=== PATIENT | female | born 1960 | race Caucasian/White ===

== ENCOUNTER 2016-09-24 17:54 | Inpatient (IN) | payer BC ==
[~2016-09-24] VITALS: Ht 160 cm; Wt 95.6 kg
[~2016-09-24 17:54] MED LIST: AMBI5TAB PO; CEPH500C3 PO; CYMB30CA PO; FURO1TAB93 PO; HYDR-3533 PO; IRBE150T49 PO; MULT1TAB46 PO; PREG75 PO; PROT40TA PO; PROV200T11 PO; SPIR25TA PO; ST JTAB PO; VITA100020 IM; VITA100020 SL
[2016-09-24 17:59] VITALS: BP 129/67; PULSE 76; RESP 15; TEMP 98.2; O2SAT 98
[2016-09-24] MEDS ORDERED: IMMUNE GLOBULIN INJ 40 GM in SYRINGE/BAG 1 EA IV SCH ×2 (19:00→21:45)
[2016-09-24] MEDS ORDERED: ACETAMINOPHEN 500 MG CPLT PO ONE (19:00)
--- NOTE | 2016-09-24 19:03 | PD ---
HPI Chief Complaint: General Weakness Time Seen by Provider: 18:35 Travel History International Travel<30 days: No Contact w/Intl Traveler<30days: No Traveled to known affect area: No History of Present Illness HPI 56yo F with PMH of CHF, narcolepsy, myasthenia gravis presents to the ED with c/ o generalized weakness, fatigue, double vision and drooping of left eyelid that is worst for 2-3 days. Pt is well known to Dr. Marcelo and was instructed to come to the ED. Denies any fever, chest pain, sob, n/v, abdominal pain, focal weakness or numbness. PFSH Past Medical History Anemia: Yes Arthritis: Yes Asthma: Yes Autoimmune Disease: No Blood Disorders: No Anxiety: No Depression: Yes Heart Rhythm Problems: No Cancer: No Cardiac Catheterization: Yes (AGE 50) Cardiovascular Problems: Yes High Cholesterol: No Chemotherapy: No Chest Pain: No Congestive Heart Failure: Yes COPD: No Cerebrovascular Accident: Yes Diabetes: No Diminished Hearing: No Endocrine: No Fibromyalgia: Yes Gastrointestinal Disorders: No GERD: Yes Glaucoma: No Genitourinary: No Headaches: Yes (OCCASIONALLY) Hepatitis: No Hiatal Hernia: No Herniated Disk: Yes Hypertension: Yes Immune Disorder: No Kidney Stones: Yes Musculoskeletal: No Neurologic: No Psychiatric: Yes Reproductive: No Respiratory: Yes Integumentary: No Immunizations Current: Yes Migraines: Yes (RARELY) Myocardial Infarction: No Radiation Therapy: No Renal Failure: No Seizures: No Shingles: Yes Sickle Cell Disease: No Sleep Apnea: Yes Thyroid Disease: No Ulcer: No Menopausal: Yes : 3 Para: 2 Miscarriage: 1 Tubal Ligation: Yes Past Surgical History Abdominal Surgery: Yes (APPENDECTOMY, GASTRIC BYPASS) AICD: No Appendectomy: Yes Arteriovenous Shunt: No Cardiac Surgery: Yes (HEART CATHERIZATION) Section: Yes (X 2) Cholecystectomy: No Ear Surgery: No Endocrine Surgery: No Eye Surgery: No Genitourinary Surgery: No Gynecologic Surgery: Yes ( X2) Insulin Pump: No Joint Replacement: No Oral Surgery: No Pacemaker: No Thoracic Surgery: No Other Surgery: Yes (LEFT TOENAIL REMOVED, DEVIATED SEPTUM, HEMORRHOIDECTOMY) Social History Alcohol Use: No Tobacco Use: No (QUIT AGE 50) Substance Use: No Allergies-Medications (Allergen,Severity, Reaction): Coded Allergies: Percocet (Unverified Allergy, Severe, 09/24/16) Singulair (Verified Allergy, Severe, Shortness of Breath, 09/24/16) Adderall (Verified Allergy, Unknown, 09/24/16) "PUTS ME TO SLEEP" Uncoded Allergies: PERCOCET. (Allergy, Severe, 07/21/13) Reported Meds & Prescriptions Reported Meds & Active Scripts Active Reported Ambien (Zolpidem Tartrate) 10 Mg Tab 10 Mg PO HS PRN Spironolactone 25 Mg Tab 25 Mg PO DAILY Multi For Her (Multiple Vitamins W/ Minerals) 1 Cap Cap Lyrica (Pregabalin) 300 Mg Cap 300 Mg PO BID Provigil (Modafinil) 200 Mg Tab 200 Mg PO DAILY Vitamin B-Complex 100 Inj (B-Complex Vitamins Inj) 1 Inj Inj 1,000 Mcg IM MONTHLY Avapro (Irbesartan) 150 Mg Tab 150 Mg PO DAILY Furosemide 40 Mg Tab 40 Mg PO BID Duloxetine DR (Duloxetine HCl) 60 Mg Capdr 60 Mg PO DAILY Pyridostigmine (Pyridostigmine [place]) 60 Mg Tab 60 Mg PO BID Review of Systems Except as stated in HPI: all other systems reviewed are Neg Physical Exam Narrative GENERAL: 56yo F not in distress. SKIN: Warm and dry. HEAD: Atraumatic. Normocephalic. EYES: Pupils equal and round at 4mm bilaterally. +Left eye ptosis. ENT: No nasal bleeding or discharge. Mucous membranes pink and moist. NECK: Trachea midline. No JVD. CARDIOVASCULAR: Regular rate and rhythm. No murmur appreciated. RESPIRATORY: No accessory muscle use. Clear to auscultation. Breath sounds equal bilaterally. GASTROINTESTINAL: Abdomen soft, non-tender, nondistended. No rebound tenderness or guarding. MUSCULOSKELETAL: No obvious deformities. No clubbing. No cyanosis. No edema. NEUROLOGICAL: Awake and alert. +Left eye ptosis. +Decreased sensation on left face. Motor grossly within normal limits. Normal speech. PSYCHIATRIC: Appropriate mood and affect; insight and judgment normal. Data Data Last Documented VS Vital Signs Date Time Temp Pulse Resp B/P Pulse Ox O2 Delivery O2 Flow Rate FiO2 09/24/16 21:06 18 09/24/16 17:59 98.2 76 129/67 98 Orders Complete Blood Count With Diff (09/24/16 18:53) Basic Metabolic Panel (Bmp) (09/24/16 18:53) Immune Globulin Inj (Privigen Inj) (09/24/16 19:00) Acetaminophen (Tylenol) (09/24/16 19:00) Electrocardiogram (09/24/16 ) Magnesium (Mg) (09/24/16 19:30) Admit Order (Ed Use Only) (09/24/16 21:11) Consult Neurology (09/24/16 ) Labs Laboratory Tests Test 09/24/16 19:30 White Blood Count 8.7 TH/MM3 Red Blood Count 4.28 MIL/MM3 Hemoglobin 12.7 GM/DL Hematocrit 37.0 % Mean Corpuscular Volume 86.4 FL Mean Corpuscular Hemoglobin 29.6 PG Mean Corpuscular Hemoglobin 34.3 % Concent Red Cell Distribution Width 14.3 % Platelet Count 234 TH/MM3 Mean Platelet Volume 9.5 FL Neutrophils (%) (Auto) 59.5 % Lymphocytes (%) (Auto) 31.7 % Monocytes (%) (Auto) 6.0 % Eosinophils (%) (Auto) 2.0 % Basophils (%) (Auto) 0.8 % Neutrophils # (Auto) 5.2 TH/MM3 Lymphocytes # (Auto) 2.8 TH/MM3 Monocytes # (Auto) 0.5 TH/MM3 Eosinophils # (Auto) 0.2 TH/MM3 Basophils # (Auto) 0.1 TH/MM3 CBC Comment DIFF FINAL Differential Comment Sodium Level 142 MEQ/L Potassium Level 3.7 MEQ/L Chloride Level 107 MEQ/L Carbon Dioxide Level 27.0 MEQ/L Anion Gap 8 MEQ/L Blood Urea Nitrogen 21 MG/DL Creatinine 0.87 MG/DL Estimat Glomerular Filtration 68 ML/MIN Rate Random Glucose 93 MG/DL Calcium Level 8.4 MG/DL Magnesium Level 2.2 MG/DL [facility] Medical Decision Making Medical Screen Exam Complete: Yes Emergency Medical Condition: Yes Interpretation(s) EKG: Sinus bradycardia at 49bpm. Normal axis. No ST segment elevation or depression. Differential Diagnosis Myasthenia gravis exacerbation vs. electrolyte abnormalities Narrative Course 56yo F with history of myasthenia gravis here with generalized fatigue, double vision and worsening left ptosis for 2-3 days. I discussed with Dr. Marcelo and he wants to start her on 400mg/kg/day IVIG and admit her to medicine. States to give acetaminophen 30 min prior to IVIG with anticipated headache. I ordered first dose of IVIG and given in the ED. Neurology consult placed. Labs reviewed, no leukocytosis. BUN mildly elevated at 21. Normal magnesium. Discussed with Dr. Noriega and accepted to her service. Diagnosis Primary Impression: Myasthenia gravis in crisis Admitting Information Admitting Physician Requests: Admit Monica Swain DO Sep 24, 2016 19:03
[2016-09-24] MEDS ORDERED: PYRI60 PO (19:04)
[2016-09-24] MEDS ORDERED: MULTCAP (20:23)
[2016-09-24] MEDS ORDERED: SPIR25TA PO (20:23)
[2016-09-24] MEDS ORDERED: PREG300 PO (20:23)
[2016-09-24] MEDS ORDERED: DULO1CAP3 PO (20:23)
[2016-09-24] MEDS ORDERED: B-COINJ IM (20:23)
[2016-09-24] MEDS ORDERED: PROV200T11 PO (20:23)
[2016-09-24] MEDS ORDERED: IRBE150T49 PO (20:23)
[2016-09-24] MEDS ORDERED: FURO40TA PO (20:23)
[2016-09-24] MEDS ORDERED: AMBI10TA PO (20:23)
[2016-09-24 20:26] LABS: AUTOMATED NEUTROPHIL # 5.2 TH/MM3 (1.8-7.7); BASOPHIL # 0.1 TH/MM3 (0-0.2); BASOPHIL % 0.8 % (0.0-2.0); EOSINOPHIL # 0.2 TH/MM3 (0-0.4); HEMO FLAGS DIFF FINAL; LYMPH % 31.7 % (9.0-44.0); LYMPHOCYTE # 2.8 TH/MM3 (1.0-4.8); MEAN CELL VOLUME 86.4 FL (80.0-100.0); MEAN CORPUSCULAR HEMOGLOBIN 29.6 PG (27.0-34.0); MEAN CORPUSCULAR HGB CONC 34.3 % (32.0-36.0); NEUT % 59.5 % (16.0-70.0); PLATELET COUNT 234 TH/MM3 (150-450); RED BLOOD COUNT 4.28 MIL/MM3 (4.00-5.30); RED CELL DISTRIBUTION WIDTH 14.3 % (11.6-17.2); WHITE BLOOD COUNT 8.7 TH/MM3 (4.0-11.0)
[2016-09-24 20:56] LABS: MAGNESIUM 2.2 MG/DL (1.5-2.5); POTASSIUM 3.7 MEQ/L (3.5-5.1)
[2016-09-24 21:58] VITALS: BP 108/68; PULSE 49; RESP 18; O2SAT 97
[2016-09-24 22:45] VITALS: BP 98/57; PULSE 46; RESP 18; O2SAT 100
[2016-09-24] MEDS ORDERED: NALOXONE HCL 0.4 MG/ML AMP IV PRN (23:00)
[2016-09-24] MEDS ORDERED: SODIUM CHLORIDE 0.9% FLUSH 10 ML FLUSH IV FLUSH PRN (23:00)
[2016-09-24 23:51] VITALS: BP 112/62; PULSE 65; RESP 18; O2SAT 98
[2016-09-25 03:29] VITALS: BP 98/48; PULSE 63; RESP 18; O2SAT 100
[2016-09-25 05:18] VITALS: BP 118/60; PULSE 63; RESP 18; O2SAT 100
[2016-09-25 07:24] LABS: AUTOMATED NEUTROPHIL # 3.1 TH/MM3 (1.8-7.7); BASOPHIL % 0.7 % (0.0-2.0); EOSINOPHIL # 0.1 TH/MM3 (0-0.4); EOSINOPHIL % 2.1 % (0.0-4.0); HEMATOCRIT 36.8 % (35.0-46.0); HEMO FLAGS DIFF FINAL; LYMPH % 26.2 % (9.0-44.0); LYMPHOCYTE # 1.3 TH/MM3 (1.0-4.8); MEAN CELL VOLUME 86.5 FL (80.0-100.0); MEAN CORPUSCULAR HEMOGLOBIN 28.8 PG (27.0-34.0); MEAN CORPUSCULAR HGB CONC 33.3 % (32.0-36.0); MONO % 7.4 % (0.0-8.0); NEUT % 63.6 % (16.0-70.0); PLATELET COUNT 195 TH/MM3 (150-450); RED BLOOD COUNT 4.25 MIL/MM3 (4.00-5.30); RED CELL DISTRIBUTION WIDTH 14.2 % (11.6-17.2); WHITE BLOOD COUNT 4.9 TH/MM3 (4.0-11.0)
[2016-09-25 07:57] LABS: BICARBONATE 27.4 MEQ/L (21.0-32.0); POTASSIUM 3.3 MEQ/L (3.5-5.1)
--- NOTE | 2016-09-25 08:57 | PD.CONS ---
History of Present Illness Service Neurology Consult Requested By er Reason for Consult weakness Primary Care Physician Fer Moe MD History of Present Illness 56-year-old female with hx of diplopia, ptosis, severe fatigue and sleepiness. working dx is sero-negative myasthenia gravis. has responded to ice-pack to forehead to help ptosis and to mestinon. has felt weak, sleepy and more ptosis. she is admitted for ivig tx. she understands the s/b of this medication including renal failure, mir, rash, mir, etc.. steroids have provided limited relief. tolerated 1st dose last night. Review of Systems as per med hpi Past Family Social History Past Medical History Congestive heart failure Fibromyalgia Depression benjamin/narcolepsy Past Surgical History Appendectomy Gastric bypass Right knee surgery Laminectomy Cardiac catheterization Tubal ligation Allergies: Coded Allergies: Egg Allergy (Verified Allergy, Severe, SOB, 09/25/14) Percocet (Unverified Allergy, Severe, 09/25/14) Singulair (Verified Allergy, Severe, Shortness of Breath, 09/25/14) Uncoded Allergies: PERCOCET. (Allergy, Severe, 07/21/13) Family History Significant for heart disease and stroke Social History works as an chief security officer. She denies any alcohol or illicit drugs Review of Systems All other ROS: ROS reviewed as documented in chart Past Family Social History Allergies: Coded Allergies: Percocet (Unverified Allergy, Severe, 09/24/16) Singulair (Verified Allergy, Severe, Shortness of Breath, 09/24/16) Adderall (Verified Allergy, Unknown, 09/24/16) "PUTS ME TO SLEEP" Uncoded Allergies: PERCOCET. (Allergy, Severe, 07/21/13) Active Ordered Medications Current Medications Medications (Trade) Dose Ordered Sig/Padmaja Route Start Time Stop Time Status Last Admin (Privigen Inj/ Syringe/Bag) 400 ml @ 50 mls/hr ONCE IV 09/24/16 21:45 (NS Flush) 2 ml UNSCH PRN IV FLUSH 09/24/16 23:00 (NS Flush) 2 ml BID IV FLUSH 09/25/16 09:00 (Narcan Inj) 0.4 mg UNSCH PRN IV 09/24/16 23:00 (Nelsonmbalta Dr) 60 mg DAILY PO 09/25/16 09:00 (Lasix) 40 mg BID@09,18 PO 09/25/16 09:00 (Provigil) 200 mg DAILY PO 09/25/16 09:00 (Mestinon) 60 mg BID PO 09/25/16 09:00 (Aldactone) 25 mg DAILY PO 09/25/16 09:00 (Vitamin B12 Inj) 1,000 mcg Q30D IM 09/25/16 09:00 (Cozaar) 50 mg DAILY PO 09/25/16 09:00 (Lyrica) 300 mg BID PO 09/25/16 09:00 Exam I&O / VS Vital Signs Date Time Temp Pulse Resp B/P Pulse Ox O2 Delivery O2 Flow Rate FiO2 09/25/16 05:18 63 18 118/60 100 Room Air 09/25/16 03:29 63 18 98/48 100 Room Air 09/25/16 02:49 100 09/24/16 23:51 65 18 112/62 98 Room Air 09/24/16 22:45 46 18 98/57 100 Room Air 09/24/16 21:58 49 18 108/68 97 Room Air 09/24/16 21:45 97 Room Air 09/24/16 21:06 18 09/24/16 17:59 98.2 76 15 129/67 98 General: Alert and Oriented, No acute distress Eye: PERRL Respiratory: Lungs CTA Cardiology: Normal rate Musculoskeletal: ROM Neurologic: Alert, Oriented, Normal sensory, Gag reflex normal, Normal DTR's Psychiatric: Cooperative, Appropriate mood & affect, Normal judgement Exam Comments ox 3, pleasant, follows, left ptosis>rt, mild reduced saccadic velocities; mild proximal weakness with fatigue, msr sym Review/Management Diagnosis/Plan: (1) Myasthenia exacerbation Plan: seronegative mg rec 5 days of ivig please transfer her to 5th floor [facility] with tele p.t. watch cbc, bmp follow exam anticipate d/c early next week, mon/tues (2) Narcolepsy and cataplexy (3) Congestive heart failure (4) BENJAMIN on CPAP Problem Qualifiers (1) Congestive heart failure: Edis Osman MD Sep 25, 2016 08:57
[2016-09-25] MEDS: diphenhydrAMINE HCL 25 MG CAP PO SCH (09:00)
[2016-09-25] MEDS ORDERED: CYANOCOBALAMIN 1000 MCG/ML VIAL IM SCH (09:00)
[2016-09-25 09:15] VITALS: BP 108/55; PULSE 62; RESP 16; O2SAT 97
[2016-09-25] MEDS: LOSARTAN 50 MG TAB PO SCH (09:16)
[2016-09-25] MEDS: DULoxetine HCl DR 60 MG CAP PO SCH (09:17)
[2016-09-25] MEDS: SPIRONOLACTONE 25 MG TAB PO SCH (09:17)
[2016-09-25] MEDS: PYRIDOSTIGMINE BROMIDE 60 MG TAB PO SCH ×2 (09:17→21:33)
[2016-09-25] MEDS: FUROSEMIDE 40 MG TAB PO SCH ×2 (09:21→18:38)
[2016-09-25] MEDS: SODIUM CHLORIDE 0.9% FLUSH 10 ML FLUSH IV FLUSH SCH ×2 (09:22→21:00)
[2016-09-25] MEDS: MODAFINIL 200 MG TAB PO SCH (09:52)
[2016-09-25] MEDS: PREGABALIN 100 MG CAP PO SCH ×2 (09:52→12:11)
[2016-09-25] MEDS ORDERED: EPINEPHrine HCL (1:1000) 1 MG/ML VIAL OTHER PRN (10:00)
[2016-09-25] MEDS ORDERED: diphenhydrAMINE HCL 50 MG/ML VIAL IV PUSH PRN (10:00)
[2016-09-25] MEDS: ACETAMINOPHEN 325 MG TAB PO SCH (12:10)
[2016-09-25] MEDS: SODIUM CHLORID 0.9% 500 ML INJ 500 ML IV SCH (12:11)
[2016-09-25 12:15] VITALS: BP 111/59; PULSE 51; RESP 16; O2SAT 97
[2016-09-25] MEDS: DEXTROSE 5% IN WATE 500 ML INJ 500 ML OTHER SCH (13:16)
[2016-09-25] MEDS: IMMUNE GLOBULIN INJ 35 GM in SYRINGE/BAG 1 EA IV SCH (13:18)
[2016-09-25] MEDS: HEPARIN SODIUM - SQ 10,000 UNITS/ML VIAL SQ SCH ×2 (14:37→21:33)
[2016-09-25 16:40] VITALS: BP 113/69; PULSE 54; RESP 16; TEMP 97.1; O2SAT 99
--- NOTE | 2016-09-25 18:14 | HHI.HP ---
[facility] Fer Moe MD Admission Diagnosis Mysthenia gravis exacerbation Diagnoses: Travel History International Travel<30 Days: No Contact w/Intl Traveler <30 Da: No Traveled to Known Affected Are: No History of Present Illness This is a very pleasant 56-year-old female with past medical history of antibody negative myasthenia gravis followed by Dr. Joe meehan who presents with a 2 month history of fatigue, left eye ptosis and double vision along with intermittent episodes of transient sleeping/narcolepsy. She also feels that her band nailer strength is diminished. The symptoms started 2 months ago after she had influenza. They have not improved with steroids. They have not improved with pyridostigmine. Symptoms are moderate, progressive, no alleviating factors. However eyes placed to her left eyelid does temporarily relieve the ptosis for 20 minutes or so. Patient tells me her dose of pyridostigmine is limited due to her cardiomyopathy. After discussion Dr. Osman recommended she be treated with IVIG, the patient now is admitted for IVIG. Review of Systems Constitutional: COMPLAINS OF: Fatigue, DENIES: Chills Eyes: COMPLAINS OF: Diplopia Ears, nose, mouth, throat: DENIES: Vertigo Respiratory: DENIES: Cough, Shortness of breath Cardiovascular: DENIES: Chest pain, Palpitations Gastrointestinal: DENIES: Abdominal pain, Nausea Genitourinary: DENIES: Dysuria Musculoskeletal: DENIES: Back pain, Neck pain Hematologic/lymphatic: DENIES: Lymphadenopathy Neurologic: DENIES: Abnormal gait, Headache Psychiatric: DENIES: Anxiety, Confusion Past Family Social History Past Medical History Idiopathic cardiomyopathy followed by Dr. Zavala Pulmonary arterial hypertension followed by Dr. Zavala Cor pulmonale Fibromyalgia Myasthenia gravis Questionable history of stroke versus previous myasthenia gravis exacerbation Reported Medications Allergies Coded Allergies Type Severity Reaction Last Updated Verified Percocet Allergy Severe 09/24/16 No Singulair Allergy Severe Shortness of Breath 09/24/16 Yes Adderall Allergy Unknown 09/24/16 Yes Uncoded Allergies Type Severity Reaction Last Updated Verified PERCOCET. Allergy Severe 07/21/13 Active Scripts Medications Dose Route/Sig Days Date Category Ambien (Zolpidem Tartrate) 10 Mg Tab 10 Mg PO HS PRN 09/24/16 Reported Spironolactone 25 Mg Tab 25 Mg PO DAILY 09/24/16 Reported Multi For Her (Multiple Vitamins W/ Minerals) 1 Cap Cap 09/24/16 Reported Lyrica (Pregabalin) 300 Mg Cap 300 Mg PO BID 09/24/16 Reported Provigil (Modafinil) 200 Mg Tab 200 Mg PO DAILY 09/24/16 Reported Vitamin B-Complex 100 Inj (B-Complex Vitamins Inj) 1 Inj Inj 1,000 Mcg IM MONTHLY 09/24/16 Reported Avapro (Irbesartan) 150 Mg Tab 150 Mg PO DAILY 09/24/16 Reported Furosemide 40 Mg Tab 40 Mg PO BID 09/24/[address] (Duloxetine HCl) 60 Mg Capdr 60 Mg PO DAILY 09/24/16 Reported Pyridostigmine (Pyridostigmine [place]) 60 Mg Tab 60 Mg PO BID 09/24/16 Reported Allergies: Coded Allergies: Percocet (Unverified Allergy, Severe, 09/24/16) Singulair (Verified Allergy, Severe, Shortness of Breath, 09/24/16) Adderall (Verified Allergy, Unknown, 09/24/16) "PUTS ME TO SLEEP" Uncoded Allergies: PERCOCET. (Allergy, Severe, 07/21/13) Family History Positive for lupus and the sister. Social History She is a past smoker now quit. 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 She does not use heavy alcohol. No drug abuse. Physical Exam Vital Signs Vital Signs Date Time Temp Pulse Resp B/P Pulse Ox O2 Delivery O2 Flow Rate FiO2 09/25/16 16:40 97.1 54 16 113/69 99 09/25/16 12:15 51 16 111/59 97 Room Air 09/25/16 09:15 62 16 108/55 97 Room Air 09/25/16 05:18 63 18 118/60 100 Room Air 09/25/16 03:29 63 18 98/48 100 Room Air 09/25/16 02:49 100 09/24/16 23:51 65 18 112/62 98 Room Air 09/24/16 22:45 46 18 98/57 100 Room Air 09/24/16 21:58 49 18 108/68 97 Room Air 09/24/16 21:45 97 Room Air 09/24/16 21:06 18 Physical Exam GENERAL: This is a well-nourished, well-developed patient, in no apparent distress. SKIN: No rashes, ecchymoses or lesions. Cool and dry. HEAD: Atraumatic. Normocephalic. No temporal or scalp tenderness. EYES: Pupils equal round and reactive. Extraocular motions intact. No scleral icterus. No injection or drainage. ENT: Nose without bleeding, purulent drainage or septal hematoma. Throat without erythema, tonsillar hypertrophy or exudate. Uvula midline. Airway patent. NECK: Trachea midline. No JVD or lymphadenopathy. Supple, nontender, no meningeal signs. CARDIOVASCULAR: Regular rate and rhythm without murmurs, gallops, or rubs. RESPIRATORY: Clear to auscultation. Breath sounds equal bilaterally. No wheezes , rales, or rhonchi. GASTROINTESTINAL: Abdomen soft, non-tender, nondistended. No hepato-splenomegaly , or palpable masses. No guarding. MUSCULOSKELETAL: Extremities without clubbing, cyanosis, or edema. No joint tenderness, effusion, or edema noted. No calf tenderness. Negative Homans sign bilaterally. NEUROLOGICAL: Awake and alert. Cranial nerves II through XII intact. Motor and sensory grossly within normal limits. Five out of 5 muscle strength in all muscle groups. Normal speech. Laboratory Laboratory Tests Test 09/24/16 09/25/16 19:30 06:23 White Blood Count 8.7 4.9 Red Blood Count 4.28 4.25 Hemoglobin 12.7 12.2 Hematocrit 37.0 36.8 Mean Corpuscular Volume 86.4 86.5 Mean Corpuscular Hemoglobin 29.6 28.8 Mean Corpuscular Hemoglobin 34.3 33.3 Concent Red Cell Distribution Width 14.3 14.2 Platelet Count 234 195 Mean Platelet Volume 9.5 9.4 Neutrophils (%) (Auto) 59.5 63.6 Lymphocytes (%) (Auto) 31.7 26.2 Monocytes (%) (Auto) 6.0 7.4 Eosinophils (%) (Auto) 2.0 2.1 Basophils (%) (Auto) 0.8 0.7 Neutrophils # (Auto) 5.2 3.1 Lymphocytes # (Auto) 2.8 1.3 Monocytes # (Auto) 0.5 0.4 Eosinophils # (Auto) 0.2 0.1 Basophils # (Auto) 0.1 0.0 CBC Comment DIFF FINAL DIFF FINAL Differential Comment Sodium Level 142 140 Potassium Level 3.7 3.3 Chloride Level 107 106 Carbon Dioxide Level 27.0 27.4 Anion Gap 8 7 Blood Urea Nitrogen 21 18 Creatinine 0.87 0.66 Estimat Glomerular Filtration 68 93 Rate Random Glucose 93 93 Calcium Level 8.4 8.0 Magnesium Level 2.2 Result Diagram: 09/25/1662209/25/16622 Assessment and Plan Assessment and Plan Myasthenia gravis exacerbationcontinue IVIG as per neurology Dr. Osman. Continue home dose of pyridostigmine. Continue Provigil. Idiopathic cardiomyopathy followed by Dr. Zavala - currently compensated, continue home regimen losartan, Lasix, spironolactone. Cardiology consult if needed. Pulmonary arterial hypertension followed by Dr. Zavala - stable on room air. Cor pulmonale - stable with no pedal edema. Continue Lasix as per home dose. Fibromyalgia - continue Cymbalta. Tylenol when necessary. Questionable history of stroke versus previous myasthenia gravis exacerbation DVT prophylaxis - scds Nilam Mohan MD Sep 25, 2016 18:14
[2016-09-25 20:00] VITALS: BP 109/59; PULSE 62; RESP 16; TEMP 98.7; O2SAT 100
[2016-09-26] VITALS (7 sets, daily range): BP systolic 87–123; BP diastolic 54–68; PULSE 48–60; RESP 15–18; TEMP 96.1–98.8; O2SAT 95–99
[2016-09-26] MEDS: DEXTROSE 5% IN WATE 500 ML INJ 500 ML OTHER SCH ×2 (01:53→19:13)
[2016-09-26] MEDS ORDERED: ACETAMINOPHEN 325 MG TAB PO ONE (05:45)
[2016-09-26] MEDS: HEPARIN SODIUM - SQ 10,000 UNITS/ML VIAL SQ SCH ×3 (05:45→23:44)
[2016-09-26 07:14] LABS: AUTOMATED NEUTROPHIL # 2.1 TH/MM3 (1.8-7.7); EOSINOPHIL # 0.2 TH/MM3 (0-0.4); EOSINOPHIL % 4.6 % (0.0-4.0); HEMATOCRIT 35.8 % (35.0-46.0); HEMO FLAGS DIFF FINAL; LYMPH % 39.4 % (9.0-44.0); LYMPHOCYTE # 1.8 TH/MM3 (1.0-4.8); MEAN CELL VOLUME 85.6 FL (80.0-100.0); MEAN CORPUSCULAR HEMOGLOBIN 29.4 PG (27.0-34.0); MEAN CORPUSCULAR HGB CONC 34.4 % (32.0-36.0); MONO % 9.1 % (0.0-8.0); NEUT % 45.9 % (16.0-70.0); PLATELET COUNT 204 TH/MM3 (150-450); RED BLOOD COUNT 4.19 MIL/MM3 (4.00-5.30); RED CELL DISTRIBUTION WIDTH 14.7 % (11.6-17.2); WHITE BLOOD COUNT 4.5 TH/MM3 (4.0-11.0)
[2016-09-26 07:40] LABS: BICARBONATE 27.2 MEQ/L (21.0-32.0); POTASSIUM 3.6 MEQ/L (3.5-5.1)
[2016-09-26] MEDS ORDERED: IBUPROFEN 600 MG TAB PO ONE (08:00)
[2016-09-26] MEDS: diphenhydrAMINE HCL 25 MG CAP PO SCH (09:00)
[2016-09-26] MEDS: MODAFINIL 200 MG TAB PO SCH (09:35)
[2016-09-26] MEDS: LOSARTAN 50 MG TAB PO SCH (09:35)
[2016-09-26] MEDS: PYRIDOSTIGMINE BROMIDE 60 MG TAB PO SCH ×2 (09:35→19:41)
[2016-09-26] MEDS: FUROSEMIDE 40 MG TAB PO SCH ×2 (09:36→17:42)
[2016-09-26] MEDS: SPIRONOLACTONE 25 MG TAB PO SCH (09:36)
[2016-09-26] MEDS: PREGABALIN 100 MG CAP PO SCH ×2 (09:36→19:41)
[2016-09-26] MEDS: SODIUM CHLORIDE 0.9% FLUSH 10 ML FLUSH IV FLUSH SCH ×2 (09:39→19:43)
[2016-09-26] MEDS: ACETAMINOPHEN 325 MG TAB PO SCH (10:38)
[2016-09-26] MEDS: DULoxetine HCl DR 60 MG CAP PO SCH (10:39)
--- NOTE | 2016-09-26 11:11 | EKG ---
Date Performed: 09/24/2016 Time Performed: 20:06:00 PTAGE: 56 years EKG: SINUS BRADYCARDIA NONSPECIFIC T-WAVE ABNORMALITY BORDERLINE ECG PREVIOUS TRACING : 10/02/2014 20.07 DOCTOR: Khurram Cevallos Interpretating Date/Time 09/26/2016 11:07:38
[2016-09-26] MEDS: SODIUM CHLORID 0.9% 500 ML INJ 500 ML IV SCH (11:15)
[2016-09-26] MEDS ORDERED: KETOROLAC TROMETHAMINE 60 MG/2 ML (IM) VIAL IM PRN (12:15)
--- NOTE | 2016-09-26 12:17 | HHI.PR ---
Review/Management Diagnosis/Plan: (1) Myasthenia exacerbation Plan: seronegative mg mir- maybe 2/ ivig will repeat mri brain/cspine rec 09/06 ivig today wants toradol for mir; pain control please transfer her to 5th floor [facility] with tele p.t. watch cbc, bmp follow exam anticipate d/c early next week, mon/tues (2) Narcolepsy and cataplexy Plan: stimulant/modafinil (3) Congestive heart failure (4) BENJAMIN on CPAP Subjective Subjective Comments No acute events reported + headache overnight, throbbing No chest pain No dyspnea Active Medications Current Medications Medications (Trade) Dose Ordered Sig/Padmaja Route Start Time Stop Time Status Last Admin (NS Flush) 2 ml UNSCH PRN IV FLUSH 09/24/16 23:00 (NS Flush) 2 ml BID IV FLUSH 09/25/16 09:00 09/26/16 09:39 (Narcan Inj) 0.4 mg UNSCH PRN IV 09/24/16 23:00 (Cymbalta Dr) 60 mg DAILY PO 09/25/16 09:00 09/26/16 10:39 (Lasix) 40 mg BID@09,18 PO 09/25/16 09:00 09/26/16 09:36 (Provigil) 200 mg DAILY PO 09/25/16 09:00 09/26/16 09:35 (Mestinon) 60 mg BID PO 09/25/16 09:00 09/26/16 09:35 (Aldactone) 25 mg DAILY PO 09/25/16 09:00 09/26/16 09:36 (Vitamin B12 Inj) 1,000 mcg Q30D IM 09/25/16 09:00 (Cozaar) 50 mg DAILY PO 09/25/16 09:00 09/26/16 09:35 Pregabalin 300 mg 300 mg BID PO 09/25/16 09:00 09/26/16 09:36 (NS 500 ml Inj) 500 ml @ 500 mls/hr Q24H IV 09/25/16 11:00 09/29/16 11:59 09/26/16 11:15 Acetaminophen 650 mg 650 mg Q24H PO 09/25/16 09:00 09/30/16 08:59 09/26/16 10:38 (D5W 500 ml Inj) 500 ml @ 30 mls/hr [id number] OTHER 09/25/16 09:53 09/28/16 21:12 09/25/16 13:16 Diphenhydramine HCl 25 mg 25 mg Q24H PO 09/25/16 09:00 09/30/16 08:59 (Privigen Inj/ Syringe/Bag) 350 ml @ 28.2 mls/hr Q24H IV 09/25/16 12:00 09/29/16 00:25 09/25/16 13:18 (Benadryl Inj) 50 mg UNSCH PRN IV PUSH 09/25/16 10:00 10/01/16 09:59 (Adrenalin (1:1000) Inj) 0.3 mg Q10M PRN OTHER 09/25/16 10:00 10/01/16 09:59 (Heparin Inj) 5,000 units Q8HR SQ 09/25/16 14:00 09/26/16 05:45 Allergies Allergies Coded Allergies Percocet (Unverified Allergy, Severe, 09/24/16) Singulair (Verified Allergy, Severe, Shortness of Breath, 09/24/16) Adderall (Verified Allergy, Unknown, 09/24/16) Uncoded Allergies PERCOCET. ( Allergy, Severe, 07/21/13) Review of Systems All other ROS: ROS reviewed as documented in chart Exam I&O / VS 09/25/16 09/25/16 09/26/16 15:00 23:00 07:00 Intake Total 690 ml Balance 690 ml Intake Oral 690 ml # Voids 2 1 Vital Signs Date Time Temp Pulse Resp B/P Pulse Ox O2 Delivery O2 Flow Rate FiO2 09/26/16 08:50 98.8 50 16 100/58 98 09/26/16 04:00 98.3 60 15 105/60 96 09/26/16 00:00 98.5 51 15 110/58 95 09/25/16 20:00 98.7 62 16 109/59 100 09/25/16 16:40 97.1 54 16 113/69 99 09/25/16 12:15 51 16 111/59 97 Room Air General: Alert and Oriented, No acute distress Eye: PERRL Respiratory: Lungs CTA Cardiology: Normal rate Musculoskeletal: ROM Neurologic: Alert, Oriented, Normal sensory, Gag reflex normal, Normal DTR's Psychiatric: Cooperative, Appropriate mood & affect, Normal judgement Exam Comments ox 3, pleasant, follows, mild left ptosis, mild reduced saccadic velocities; mild proximal weakness with fatigue, msr sym Objective Micro and Labs Laboratory Tests Test 09/26/16 06:40 White Blood Count 4.5 Red Blood Count 4.19 Hemoglobin 12.3 Hematocrit 35.8 Mean Corpuscular Volume 85.6 Mean Corpuscular Hemoglobin 29.4 Mean Corpuscular Hemoglobin 34.4 Concent Red Cell Distribution Width 14.7 Platelet Count 204 Mean Platelet Volume 9.0 Neutrophils (%) (Auto) 45.9 Lymphocytes (%) (Auto) 39.4 Monocytes (%) (Auto) 9.1 Eosinophils (%) (Auto) 4.6 Basophils (%) (Auto) 1.0 Neutrophils # (Auto) 2.1 Lymphocytes # (Auto) 1.8 Monocytes # (Auto) 0.4 Eosinophils # (Auto) 0.2 Basophils # (Auto) 0.0 CBC Comment DIFF FINAL Differential Comment Sodium Level 142 Potassium Level 3.6 Chloride Level 108 Carbon Dioxide Level 27.2 Anion Gap 7 Blood Urea Nitrogen 16 Creatinine 0.67 Estimat Glomerular Filtration 92 Rate Random Glucose 89 Calcium Level 8.4 Problem Qualifiers (1) Congestive heart failure: Edis Osman MD Sep 26, 2016 12:17
[2016-09-26] MEDS: IMMUNE GLOBULIN INJ 35 GM in SYRINGE/BAG 1 EA IV SCH (12:57)
--- NOTE | 2016-09-26 18:43 | HHI.PR ---
Subjective Remarks Patient complains of global headache associated with nausea, typical of migraines for her. Started last night. Improved today with tylenol and coffee - toradol and caffeine is usually what works for her. She also has noticed that her left eye ptosis is much improved but not all the way back to normal. She states she cannot tell if there is a difference in the fatigue and sleepiness episodes. She also notes that she has had numbness and decreased sensation in her fingertips and toes as well as the mid to lower back for the past several weeks. Neurology has ordered a brain MRI and cervical spine. 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 Objective Vitals Vital Signs Date Time Temp Pulse Resp B/P Pulse Ox O2 Delivery O2 Flow Rate FiO2 09/26/16 16:00 96.1 51 16 105/66 99 09/26/16 13:50 97.2 59 16 100/54 95 09/26/16 12:00 97.2 51 16 88/62 97 87/68 09/26/16 08:50 98.8 50 16 100/58 98 09/26/16 04:00 98.3 60 15 105/60 96 09/26/16 00:00 98.5 51 15 110/58 95 09/25/16 20:00 98.7 62 16 109/59 100 I/O 09/25/16 09/25/16 09/25/16 09/26/16 09/26/16 09/26/16 07:00 15:00 23:00 07:00 15:00 23:00 Intake Total 690 ml 600 ml Balance 690 ml 600 ml Intake Oral 690 ml 600 ml # Voids 2 1 3 # Bowel Movements 1 Result Diagram: 09/26/16 0640 09/26/16 0640 Objective Remarks GENERAL: Well-nourished, well-developed patient. SKIN: Warm and dry. HEAD: Normocephalic. EYES: No scleral icterus. No injection or drainage. Left eye ptosis still present but much improved. NECK: Supple, trachea midline. No JVD or lymphadenopathy. CARDIOVASCULAR: Regular rate and rhythm without murmurs, gallops, or rubs. RESPIRATORY: Breath sounds equal and clear to auscultation bilaterally. No accessory muscle use. GASTROINTESTINAL: Abdomen soft, non-tender, nondistended. EXTREMITIES: No cyanosis, or edema. NEUROLOGICAL: Awake, alert, and oriented x 3. Non-focal. Bilateral patent searcher strength equal. With light touch applied to back the patient complains of decreased sensation from the approximately T5 level on down to the sacrum. A/P Assessment and Plan -Myasthenia gravis exacerbationcontinue IVIG as per neurology Dr. Osman. Continue home dose of pyridostigmine. Continue Provigil. -Idiopathic cardiomyopathy followed by Dr. Zavala - currently compensated, continue home regimen losartan, Lasix, spironolactone. Cardiology consult if needed. -Pulmonary arterial hypertension followed by Dr. Zavala - stable on room air. -Migraine headache. Continue Tylenol, Toradol as needed. -Cor pulmonale - stable with no pedal edema. Continue Lasix as per home dose. Check potassium level in a.m. -Fibromyalgia - continue Cymbalta. Tylenol when necessary. -Questionable history of stroke versus previous myasthenia gravis exacerbation -Paresthesias of fingertips toes and lower back - possible neuropathy versus issue with cervical spine. MRI spine pending. 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 Brain MRI pending. -Hypokalemia. Check BMP in the morning. -DVT prophylaxis - scds Nilam Mohan MD Sep 26, 2016 18:43
[2016-09-27] VITALS (7 sets, daily range): BP systolic 96–128; BP diastolic 64–80; PULSE 46–55; RESP 12–20; TEMP 96.4–98.6; O2SAT 96–100
[2016-09-27] MEDS: HEPARIN SODIUM - SQ 10,000 UNITS/ML VIAL SQ SCH ×3 (06:35→21:48)
[2016-09-27 08:01] LABS: BICARBONATE 29.6 MEQ/L (21.0-32.0); POTASSIUM 3.5 MEQ/L (3.5-5.1)
[2016-09-27 08:03] LABS: BASOPHIL # 0.1 TH/MM3 (0-0.2); BASOPHIL % 1.4 % (0.0-2.0); EOSINOPHIL # 0.2 TH/MM3 (0-0.4); EOSINOPHIL % 4.2 % (0.0-4.0); HEMATOCRIT 35.7 % (35.0-46.0); HEMO FLAGS DIFF FINAL; LYMPH % 34.3 % (9.0-44.0); LYMPHOCYTE # 1.5 TH/MM3 (1.0-4.8); MEAN CELL VOLUME 85.9 FL (80.0-100.0); MEAN CORPUSCULAR HEMOGLOBIN 28.8 PG (27.0-34.0); MEAN CORPUSCULAR HGB CONC 33.5 % (32.0-36.0); MONO % 13.2 % (0.0-8.0); NEUT % 46.9 % (16.0-70.0); PLATELET COUNT 166 TH/MM3 (150-450); RED BLOOD COUNT 4.16 MIL/MM3 (4.00-5.30); RED CELL DISTRIBUTION WIDTH 14.5 % (11.6-17.2); WHITE BLOOD COUNT 4.4 TH/MM3 (4.0-11.0)
[2016-09-27] MEDS: SODIUM CHLORIDE 0.9% FLUSH 10 ML FLUSH IV FLUSH SCH ×2 (09:00→21:00)
[2016-09-27] MEDS: diphenhydrAMINE HCL 25 MG CAP PO SCH (09:00)
[2016-09-27] MEDS: DULoxetine HCl DR 60 MG CAP PO SCH (09:55)
[2016-09-27] MEDS: MODAFINIL 200 MG TAB PO SCH (09:55)
[2016-09-27] MEDS: SPIRONOLACTONE 25 MG TAB PO SCH (09:55)
[2016-09-27] MEDS: FUROSEMIDE 40 MG TAB PO SCH ×2 (09:55→17:29)
[2016-09-27] MEDS: PREGABALIN 100 MG CAP PO SCH ×2 (09:55→21:48)
[2016-09-27] MEDS: PYRIDOSTIGMINE BROMIDE 60 MG TAB PO SCH ×2 (09:56→21:47)
[2016-09-27] MEDS: LOSARTAN 50 MG TAB PO SCH (09:58)
--- NOTE | 2016-09-27 10:03 | HHI.PR ---
Review/Management Diagnosis/Plan: (1) Myasthenia exacerbation Plan: seronegative mg bmp stable mir- 2/2 ivig will repeat mri brain/c,tspine for back numbness and left side rec 4/5 ivig today doing well will consider imuran in the future anticipate d/c tomorrow after last tx f/u with me in 4 weeks d/w pt (2) Narcolepsy and cataplexy Plan: stimulant/modafinil (3) Congestive heart failure (4) BENJAMIN on CPAP Subjective Subjective Comments No acute events reported; feels better, more energy, less ptosis headache occurred with ivig yesterday but resolved with toradol No chest pain No dyspnea Active Medications Current Medications Medications (Trade) Dose Ordered Sig/Padmaja Route Start Time Stop Time Status Last Admin (NS Flush) 2 ml UNSCH PRN IV FLUSH 09/24/16 23:00 (NS Flush) 2 ml BID IV FLUSH 09/25/16 09:00 09/27/16 09:00 (Narcan Inj) 0.4 mg UNSCH PRN IV 09/24/16 23:00 (Cymbalta Dr) 60 mg DAILY PO 09/25/16 09:00 09/27/16 09:55 (Lasix) 40 mg BID@09,18 PO 09/25/16 09:00 09/27/16 09:55 (Provigil) 200 mg DAILY PO 09/25/16 09:00 09/27/16 09:55 (Mestinon) 60 mg BID PO 09/25/16 09:00 09/27/16 09:56 (Aldactone) 25 mg DAILY PO 09/25/16 09:00 09/27/16 09:55 (Vitamin B12 Inj) 1,000 mcg Q30D IM 09/25/16 09:00 (Cozaar) 50 mg DAILY PO 09/25/16 09:00 09/27/16 09:58 Pregabalin 300 mg 300 mg BID PO 09/25/16 09:00 09/27/16 09:55 (NS 500 ml Inj) 500 ml @ 500 mls/hr Q24H IV 09/25/16 11:00 09/29/16 11:59 09/26/16 11:15 Acetaminophen 650 mg 650 mg Q24H PO 09/25/16 09:00 09/30/16 08:59 09/26/16 10:38 (D5W 500 ml Inj) 500 ml @ 30 mls/hr [id number] OTHER 09/25/16 09:53 09/28/16 21:12 09/25/16 13:16 Diphenhydramine HCl 25 mg 25 mg Q24H PO 09/25/16 09:00 09/30/16 08:59 (Privigen Inj/ Syringe/Bag) 350 ml @ 28.2 mls/hr Q24H IV 09/25/16 12:00 09/29/16 00:25 09/26/16 12:57 (Benadryl Inj) 50 mg UNSCH PRN IV PUSH 09/25/16 10:00 10/01/16 09:59 (Adrenalin (1:1000) Inj) 0.3 mg Q10M PRN OTHER 09/25/16 10:00 10/01/16 09:59 (Heparin Inj) 5,000 units Q8HR SQ 09/25/16 14:00 09/27/16 06:35 (Toradol Inj) 30 mg Q8H PRN IM 09/26/16 12:15 10/01/16 12:14 09/26/16 19:28 Allergies Allergies Coded Allergies Percocet (Unverified Allergy, Severe, 09/24/16) Singulair (Verified Allergy, Severe, Shortness of Breath, 09/24/16) Adderall (Verified Allergy, Unknown, 09/24/16) Uncoded Allergies PERCOCET. ( Allergy, Severe, 07/21/13) Review of Systems All other ROS: ROS reviewed as documented in chart Exam I&O / VS 09/26/16 09/26/16 09/27/16 15:00 23:00 07:00 Intake Total 600 ml 480 ml 480 ml Balance 600 ml 480 ml 480 ml Intake Oral 600 ml 480 ml 480 ml # Voids 3 4 2 # Bowel Movements 1 0 0 Vital Signs Date Time Temp Pulse Resp B/P Pulse Ox O2 Delivery O2 Flow Rate FiO2 09/27/16 07:50 98.2 48 12 112/67 99 09/27/16 04:00 96.8 46 18 104/64 98 09/27/16 00:00 96.4 48 18 96/64 96 09/26/16 20:00 98.6 48 18 123/68 97 09/26/16 16:00 96.1 51 16 105/66 99 09/26/16 13:50 97.2 59 16 100/54 95 09/26/16 12:00 97.2 51 16 88/62 97 87/68 General: Alert and Oriented, No acute distress Eye: PERRL Respiratory: Lungs CTA Cardiology: Normal rate Musculoskeletal: ROM Neurologic: Alert, Oriented, Normal sensory, Gag reflex normal, Normal DTR's Psychiatric: Cooperative, Appropriate mood & affect, Normal judgement Exam Comments ox 3, pleasant, follows, not ptosis, mild reduced saccadic velocities;stronger, msr sym Objective Micro and Labs Laboratory Tests Test 09/27/16 07:21 White Blood Count 4.4 Red Blood Count 4.16 Hemoglobin 12.0 Hematocrit 35.7 Mean Corpuscular Volume 85.9 Mean Corpuscular Hemoglobin 28.8 Mean Corpuscular Hemoglobin 33.5 Concent Red Cell Distribution Width 14.5 Platelet Count 166 Mean Platelet Volume 9.1 Neutrophils (%) (Auto) 46.9 Lymphocytes (%) (Auto) 34.3 Monocytes (%) (Auto) 13.2 Eosinophils (%) (Auto) 4.2 Basophils (%) (Auto) 1.4 Neutrophils # (Auto) 2.0 Lymphocytes # (Auto) 1.5 Monocytes # (Auto) 0.6 Eosinophils # (Auto) 0.2 Basophils # (Auto) 0.1 CBC Comment DIFF FINAL Differential Comment Sodium Level 141 Potassium Level 3.5 Chloride Level 107 Carbon Dioxide Level 29.6 Anion Gap 4 Blood Urea Nitrogen 22 Creatinine 0.80 Estimat Glomerular Filtration 75 Rate Random Glucose 81 Calcium Level 8.1 Problem Qualifiers (1) Congestive heart failure: Edis Osman MD Sep 27, 2016 10:03
[2016-09-27] MEDS ORDERED: LORazepam 2 MG/ML VIAL IV ONE (10:15)
[2016-09-27] MEDS ORDERED: GADODIAMIDE PF 287 MG/ML 20 ML VIAL (for RAD MRI) IV ONE (11:13)
--- NOTE | 2016-09-27 11:46 | RADRPT ---
EXAM DATE/TIME: 09/27/2016 10:26 [facility] COMPARISON: No previous studies available for comparison. INDICATIONS : Mulitple sclerosis. CONTRAST: 19 cc Omniscan (gadodiamide) IV MEDICAL HISTORY : Congestive heart failure. Hypertension. Myesthenia gravis. SURGICAL HISTORY : Discectomy, lumbar. Gastric bypass. Appendectomy. ENCOUNTER: Initial ACUITY: 2 day PAIN SCORE: 0/10 LOCATION: Paraspinal TECHNIQUE: Multiplanar multisequence MRI of the thoracic spine was performed. FINDINGS: VERTEBRA: Normal vertebral body height. There are marrow edema change is seen along the anterior aspect of the T11-T12 vertebral bodies adjacent to a area of disc desiccation and anterior disc protrusion. ALIGNMENT: Normal. CORD: Normal position and configuration. No abnormal signal seen. POST CONTRAST: No abnormal areas of contrast enhancement seen. T1-T2: Normal. T2-T3: The thecal sac has a normal diameter. No evidence of disc bulge or protrusion. T3-T4: The thecal sac has a normal diameter. No evidence of disc bulge or protrusion. T4-T5: The thecal sac has a normal diameter. No evidence of disc bulge or protrusion. T5-T6: Small posterior disc bulge slightly effacing the anterior left thecal sac.. T6-T7: Small focal posterior disc bulge which partially effaces the anterior right thecal sac. T7-T8: The thecal sac has a normal diameter. No evidence of disc bulge or protrusion. T8-T9: The thecal sac has a normal diameter. No evidence of disc bulge or protrusion. T9-T10: The thecal sac has a normal diameter. No evidence of disc bulge or protrusion. T10-T11: The thecal sac has a normal diameter. No evidence of disc bulge or protrusion. T11-T12: The thecal sac has a normal diameter. No evidence of posterior disc bulge or protrusion. T12-L1: The thecal sac has a normal diameter. No evidence of disc bulge or protrusion. CONCLUSION: 1. No abnormal signal identified within the spinal cord. 2. Degenerative disc changes with small focal disc protrusions seen at the level of T5/T6 and T6-T7 w ithout significant effacement of the thecal sac. Degenerative endplate marrow changes seen at the lev el of T11/T12.. Elisa Navarrete MD on September 27, 2016 at 11:39 Board Certified Radiologist. This report was verified electronically.
--- NOTE | 2016-09-27 11:48 | RADRPT ---
EXAM DATE/TIME: 09/27/2016 10:26 [facility] COMPARISON: MRI CERVICAL SPINE W & W/O CONTRAST, October 03, 2014, 12:22. INDICATIONS : Mulitple sclerosis. CONTRAST: 19 cc Omniscan (gadodiamide) IV MEDICAL HISTORY : Hypertension. Congestive heart failure. Myesthenia gravis. SURGICAL HISTORY : Discectomy, lumbar. Gastric bypass. Appendectomy. ENCOUNTER: Initial ACUITY: 2 day PAIN SCORE: 0/10 LOCATION: Paraspinal TECHNIQUE: Multiplanar, multisequence MRI examination of the cervical spine was performed. FINDINGS: VERTEBRAE: Normal vertebral body height. Homogeneous marrow signal. ALIGNMENT: No evidence of subluxation. CORD: Normal configuration and signal. POST FOSSA: The cerebellar tonsils are normal in position. POST-CONTRAST: No abnormal areas of enhancement are seen. C2-C3: The thecal sac has a normal configuration. There is no evidence of disc herniation or spinal canal stenosis. The neural foramina are patent bilaterally. C3-C4: The thecal sac has a normal configuration. There is no evidence of disc herniation or spinal canal s tenosis. The neural foramina are patent bilaterally. C4-C5: The thecal sac has a normal configuration. There is no evidence of disc herniation or spinal canal s tenosis. The neural foramina are patent bilaterally. C5-C6: The thecal sac has a normal configuration. There is no evidence of disc herniation or spinal canal s tenosis. The neural foramina are patent bilaterally. C6-C7: The thecal sac has a normal configuration. There is no evidence of disc herniation or spinal canal s tenosis. The neural foramina are patent bilaterally. C7-T1: The thecal sac has a normal configuration. There is no evidence of disc herniation or spinal canal s tenosis. The neural foramina are patent bilaterally. CONCLUSION: Normal examination. Elisa Navarrete MD on September 27, 2016 at 11:44 Board Certified Radiologist. This report was verified electronically.
[2016-09-27] MEDS: DEXTROSE 5% IN WATE 500 ML INJ 500 ML OTHER SCH (11:53)
[2016-09-27] MEDS: SODIUM CHLORID 0.9% 500 ML INJ 500 ML IV SCH (11:54)
[2016-09-27] MEDS: ACETAMINOPHEN 325 MG TAB PO SCH (11:54)
--- NOTE | 2016-09-27 11:54 | RADRPT ---
EXAM DATE/TIME: 09/27/2016 10:26 [facility] COMPARISON: MRI BRAIN W & W/O CONTRAST, October 03, 2014, 12:22. INDICATIONS : Cephalgia. CONTRAST: 19 cc Omniscan (gadodiamide) IV MEDICAL HISTORY : Hypertension. Congestive heart failure. Myesthenia gravis. SURGICAL HISTORY : Discectomy, lumbar. Gastric bypass. Appendectomy. ENCOUNTER: Initial ACUITY: 2 day PAIN SCORE: 5/10 LOCATION: cranial TECHNIQUE: Multiplanar, multisequence MRI of the brain was performed both prior to and following the administrat ion of paramagnetic contrast. FINDINGS: The shearer-white matter demonstrates normal signal with the exception of a stable mild heterogeneous in creased T2 signal identified within the gael. This demonstrates no abnormal enhancement and no eviden ce of restricted diffusion. There is no evidence of intra-axial or extra-axial mass or mass effect. T he ventricles are normal in size. The structures of the posterior fossa demonstrate normal morphology and signal. The sagittal flair sequence demonstrates no abnormal signal within the white matter suggestive of mul tiple sclerosis. CONCLUSION: Stable nonspecific increased T2 signal identified within the gael. This may reflect demyelination sec ondary to multiple sclerosis versus small vessel ischemic change. No other abnormalities are seen.. Elisa Navarrete MD on September 27, 2016 at 11:47 Board Certified Radiologist. This report was verified electronically.
[2016-09-27] MEDS: IMMUNE GLOBULIN INJ 35 GM in SYRINGE/BAG 1 EA IV SCH (14:21)
--- NOTE | 2016-09-27 19:30 | HHI.PR ---
Subjective Remarks Patient feels much improved today. Less sleepy. Ptosis nearly resolved. Had migraine last night which resolved with Toradol. In good spirits. Objective Vitals Vital Signs Date Time Temp Pulse Resp B/P Pulse Ox O2 Delivery O2 Flow Rate FiO2 09/27/16 14:48 96.6 52 16 115/71 97 09/27/16 14:30 96.6 55 16 110/71 97 09/27/16 11:20 98.6 46 20 120/75 99 09/27/16 07:50 98.2 48 12 112/67 99 09/27/16 04:00 96.8 46 18 104/64 98 09/27/16 00:00 96.4 48 18 96/64 96 09/26/16 20:00 98.6 48 18 123/68 97 I/O 09/26/16 09/26/16 09/26/16 09/27/16 09/27/16 09/27/16 07:00 15:00 23:00 07:00 15:00 23:00 Intake Total 600 ml 480 ml 480 ml 600 ml Balance 600 ml 480 ml 480 ml 600 ml Intake Oral 600 ml 480 ml 480 ml 600 ml # Voids 1 3 4 2 5 # Bowel Movements 1 0 0 1 Result Diagram: 09/27/1672009/27/16720 Objective Remarks GENERAL: Well-nourished, well-developed patient. SKIN: Warm and dry. HEAD: Normocephalic. EYES: No scleral icterus. No injection or drainage. Left eye ptosis nearly resolved. NECK: Supple, trachea midline. No JVD or lymphadenopathy. CARDIOVASCULAR: Regular rate and rhythm without murmurs, gallops, or rubs. RESPIRATORY: Breath sounds equal and clear to auscultation bilaterally. No accessory muscle use. GASTROINTESTINAL: Abdomen soft, non-tender, nondistended. EXTREMITIES: No cyanosis, or edema. NEUROLOGICAL: Awake, alert, and oriented x 3. Non-focal. A/P Assessment and Plan -Myasthenia gravis exacerbationcontinue IVIG as per neurology Dr. Osman. Continue home dose of pyridostigmine. -Narcolepsy. Continue Provigil. -Idiopathic cardiomyopathy followed by Dr. Zavala - currently compensated, continue home regimen losartan, Lasix, spironolactone. Cardiology consult if needed. -Pulmonary arterial hypertension followed by Dr. Zavala - stable on room air. -Migraine headache. Continue Tylenol, Toradol as needed. -Cor pulmonale - stable with no pedal edema. Continue Lasix as per home dose. -Fibromyalgia - continue Cymbalta. Tylenol when necessary. -Questionable history of stroke versus previous myasthenia gravis exacerbation - discussed with Dr. Osman, unlikely to have had a stroke in the past. -Paresthesias of fingertips toes and lower back -unclear etiology. Cervical spine and thoracic spine essentially negative. -Demyelinating lesion in the gael seen on brain MRI. -Hypokalemia. Resolved. -DVT prophylaxis - scds Possible discharge home tomorrow. Discussed with Dr. Joe meehan. Nilam Mohan MD Sep 27, 2016 19:30
[2016-09-28] VITALS (9 sets, daily range): BP systolic 89–121; BP diastolic 58–72; PULSE 48–60; RESP 16–18; TEMP 96.9–97.6; O2SAT 97–100
[2016-09-28] MEDS: DEXTROSE 5% IN WATE 500 ML INJ 500 ML OTHER SCH (04:33)
[2016-09-28] MEDS: HEPARIN SODIUM - SQ 10,000 UNITS/ML VIAL SQ SCH ×2 (06:02→17:12)
[2016-09-28 06:24] LABS: AUTOMATED NEUTROPHIL # 1.2 TH/MM3 (1.8-7.7); BASOPHIL # 0.1 TH/MM3 (0-0.2); BASOPHIL % 1.9 % (0.0-2.0); EOSINOPHIL # 0.2 TH/MM3 (0-0.4); EOSINOPHIL % 5.7 % (0.0-4.0); HEMO FLAGS DIFF FINAL; LYMPH % 45.2 % (9.0-44.0); LYMPHOCYTE # 1.5 TH/MM3 (1.0-4.8); MEAN CELL VOLUME 86.1 FL (80.0-100.0); MEAN CORPUSCULAR HEMOGLOBIN 28.5 PG (27.0-34.0); NEUT % 35.2 % (16.0-70.0); PLATELET COUNT 153 TH/MM3 (150-450); RED BLOOD COUNT 4.06 MIL/MM3 (4.00-5.30); RED CELL DISTRIBUTION WIDTH 14.2 % (11.6-17.2); WHITE BLOOD COUNT 3.3 TH/MM3 (4.0-11.0)
[2016-09-28 06:45] LABS: BICARBONATE 28.3 MEQ/L (21.0-32.0); POTASSIUM 3.6 MEQ/L (3.5-5.1)
[2016-09-28] MEDS: SODIUM CHLORIDE 0.9% FLUSH 10 ML FLUSH IV FLUSH SCH (09:00)
[2016-09-28] MEDS: diphenhydrAMINE HCL 25 MG CAP PO SCH (09:00)
[2016-09-28] MEDS: DULoxetine HCl DR 60 MG CAP PO SCH (09:47)
[2016-09-28] MEDS: PYRIDOSTIGMINE BROMIDE 60 MG TAB PO SCH (09:48)
[2016-09-28] MEDS: PREGABALIN 100 MG CAP PO SCH (09:48)
[2016-09-28] MEDS: LOSARTAN 50 MG TAB PO SCH (09:48)
[2016-09-28] MEDS: FUROSEMIDE 40 MG TAB PO SCH ×2 (09:49→17:11)
[2016-09-28] MEDS: MODAFINIL 200 MG TAB PO SCH (09:49)
[2016-09-28] MEDS: SPIRONOLACTONE 25 MG TAB PO SCH (09:49)
--- NOTE | 2016-09-28 10:13 | HHI.DS ---
Discharge Summary Admission Date Sep 24, 2016 at 21:12 Discharge Date: Sep 28, 2016 Admitting Diagnosis Mysthenia gravis exacerbation (1) Myasthenia exacerbation ICD Code: G70.01 Procedures None Brief History - From Admission HPI from admitting physician This is a very pleasant 56-year-old female with past medical history of antibody negative myasthenia gravis followed by Dr. Joe meehan who presents with a 2 month history of fatigue, left eye ptosis and double vision along with intermittent episodes of transient sleeping/narcolepsy. She also feels that her training lead strength is diminished. The symptoms started 2 months ago after she had influenza. They have not improved with steroids. They have not improved with pyridostigmine. Symptoms are moderate, progressive, no alleviating factors. However eyes placed to her left eyelid does temporarily relieve the ptosis for 20 minutes or so. Patient tells me her dose of pyridostigmine is limited due to her cardiomyopathy. After discussion Dr. Osman recommended she be treated with IVIG, the patient now is admitted for IVIG. CBC/BMP: 09/28/16 0600 09/28/16 0600 Significant Findings Laboratory Tests Test 09/26/16 09/27/16 09/28/16 06:40 07:21 06:00 Monocytes (%) (Auto) 9.1 % (0.0-8.0) 13.2 % 12.0 % (0.0-8.0) (0.0-8.0) Eosinophils (%) (Auto) 4.6 % (0.0-4.0) 4.2 % (0.0-4.0) 5.7 % (0.0-4.0) Chloride Level 108 MEQ/L (98-107) Calcium Level 8.4 MG/DL 8.1 MG/DL 8.0 MG/DL (8.5-10.1) (8.5-10.1) (8.5-10.1) C-Reactive Protein 1.37 MG/DL (0.00-0.30) Anion Gap 4 MEQ/L (5-15) Blood Urea Nitrogen 22 MG/DL (7-18) Estimat Glomerular Filtration 75 ML/MIN (>89) 84 ML/MIN (>89) Rate White Blood Count 3.3 TH/MM3 (4.0-11.0) Lymphocytes (%) (Auto) 45.2 % (9.0-44.0) Neutrophils # (Auto) 1.2 TH/MM3 (1.8-7.7) Imaging Last Impressions Thoracic Spine MRI 09/27/16 0000 Signed Impressions: Service Date/Time: Tuesday, September 27, 2016 10:26 - CONCLUSION: 1. No abnormal signal identified within the spinal cord. 2. Degenerative disc changes with small focal disc protrusions seen at the level of T5/T6 and T6-T7 without significant effacement of the thecal sac. Degenerative endplate marrow changes seen at the level of T11/T12.. Elisa Navarrete MD Cervical Spine MRI 09/27/16 0000 Signed Impressions: Service Date/Time: Tuesday, September 27, 2016 10:26 - CONCLUSION: Normal examination. Elisa Navarrete MD Brain MRI 09/27/16 0000 Signed Impressions: Service Date/Time: Tuesday, September 27, 2016 10:26 - CONCLUSION: Stable nonspecific increased T2 signal identified within the gael. This may reflect demyelination secondary to multiple sclerosis versus small vessel ischemic change. No other abnormalities are seen.. Elisa Navarrete MD PE at Discharge GENERAL: Well-nourished, well-developed patient. SKIN: Warm and dry. HEAD: Normocephalic. EYES: No scleral icterus. No injection or drainage. Left eye ptosis nearly resolved. NECK: Supple, trachea midline. No JVD or lymphadenopathy. CARDIOVASCULAR: Regular rate and rhythm without murmurs, gallops, or rubs. RESPIRATORY: Breath sounds equal and clear to auscultation bilaterally. No accessory muscle use. GASTROINTESTINAL: Abdomen soft, non-tender, nondistended. EXTREMITIES: No cyanosis, or edema. NEUROLOGICAL: Awake, alert, and oriented x 3. Non-focal. Pt update on day of discharge Patient reports feeling great. Ptosis resolved. She is anxious to go home. Understand the need to follow up outpatient with neurology. Hospital Course 56-year-old female admitted for myasthenia gravis exacerbation. The patient was followed by neurology. She was treated with IVIG with much improvement of her symptoms. Home dose of pyridostigmine. Other conditions treated include: -Narcolepsy. Continue Provigil. -Idiopathic cardiomyopathy followed by Dr. Zavala - currently compensated, continue home regimen losartan, Lasix, spironolactone. -Pulmonary arterial hypertension followed by Dr. Zavala - stable on room air. -Migraine headache. Continue Tylenol, Toradol as needed. -Cor pulmonale - stable with no pedal edema. Continue Lasix as per home dose. -Fibromyalgia - continue Cymbalta. Pt Condition on Discharge: Good Discharge Disposition: Discharge Home Discharge Time: <= 30 minutes Discharge Instructions DIET: Follow Instructions for: As Tolerated, No Restrictions Activities you can perform: Regular-No Restrictions Follow up Referrals: Neurology - 1 Month with Edis Osman MD Continued Medications: B-Complex Vitamins Inj (Vitamin B-Complex 100 Inj) 1 Inj Inj 1000 MCG IM MONTHLY Duloxetine DR (Duloxetine DR) 60 Mg Capdr 60 MG PO DAILY #30 Ref 0 CAP Furosemide (Furosemide) 40 Mg Tab 40 MG PO BID #30 Ref 0 TAB Irbesartan (Avapro) 150 Mg Tab 150 MG PO DAILY Blood Pressure Management #30 Ref 0 TAB Modafinil (Provigil) 200 Mg Tab 200 MG PO DAILY Manage Daytime Sleepiness Ref 0 TAB Multiple Vitamins W/ Minerals (Multi For Her) 1 Cap Cap Pregabalin (Lyrica) 300 Mg Cap 300 MG PO BID #60 Ref 0 CAP Pyridostigmine (Pyridostigmine) 60 Mg Tab 60 MG PO BID Manage Myastenia Gravis #180 Ref 0 TAB Spironolactone (Spironolactone) 25 Mg Tab 25 MG PO DAILY #30 Ref 0 TAB Zolpidem (Ambien) 10 Mg Tab 10 MG PO HS PRN INSOMNIA Ref 0 TAB Jacque Randall MD Sep 28, 2016 10:13
[2016-09-28] MEDS: ACETAMINOPHEN 325 MG TAB PO SCH (11:16)
[2016-09-28] MEDS: SODIUM CHLORID 0.9% 500 ML INJ 500 ML IV SCH (11:17)
[2016-09-28] MEDS: IMMUNE GLOBULIN INJ 35 GM in SYRINGE/BAG 1 EA IV SCH (13:04)
== END 2016-09-28 21:05 | disposition home or self-care (01) | DRG 57 ==
LOC: NEPB 17:54 → NEDA 21:12 → NEDH 09-25 01:12 → HOCB 09-25 16:45
PROVIDERS: ADMIT Family Medicine; ATTEND Family Medicine
DX: G70.01 Myasthenia gravis with (acute) exacerbation (principal); I42.9 Cardiomyopathy, unspecified; I11.0 Hypertensive heart disease with heart failure; I50.9 Heart failure, unspecified; I27.2 Other secondary pulmonary hypertension; J45.909 Unspecified asthma, uncomplicated; K21.9 Gastro-esophageal reflux disease without esophagitis; G47.33 Obstructive sleep apnea (adult) (pediatric); I27.81 Cor pulmonale (chronic); G47.411 Narcolepsy with cataplexy; G43.909 Migraine, unspecified, not intractable, without status migrainosus; E87.6 Hypokalemia; M79.7 Fibromyalgia; F32.9 Major depressive disorder, single episode, unspecified; Z87.891 Personal history of nicotine dependence; Z88.5 Allergy status to narcotic agent; Z91.012 Allergy to eggs; Z98.84 Bariatric surgery status
CPT/HCPCS: 70553; 72156; 72157; 76937; 80048; 82607; 83735; 84443; 85025; 85652; 86038; 86140; 93005; 96374; A9579; J1459; J1644; J1885; J7040; J7060

== ENCOUNTER 2017-04-27 18:22 | Observation (INO) | payer BC ==
[~2017-04-27] VITALS: Ht 160 cm; Wt 92.8 kg
[~2017-04-27 18:22] MED LIST changes: +AMBI10TA PO; -AMBI5TAB PO; +B-COINJ IM; -CEPH500C3 PO; -CYMB30CA PO; +DULO1CAP3 PO; -FURO1TAB93 PO; +FURO40TA PO; -HYDR-3533 PO; -MULT1TAB46 PO; +MULTCAP; +PREG300 PO; -PREG75 PO; -PROT40TA PO; +PYRI60 PO; -ST JTAB PO; -VITA100020 IM; -VITA100020 SL
[2017-04-27 18:28] VITALS: BP 135/78; PULSE 56; RESP 15; TEMP 98.2; O2SAT 98
--- NOTE | 2017-04-27 18:50 | PD ---
HPI Chief Complaint: Chest Pain Time Seen by Provider: 18:30 Travel History International Travel<30 days: No Contact w/Intl Traveler<30days: No Traveled to known affect area: No History of Present Illness HPI 56yo F with PMH of myasthenia gravis, CHF, fibromyalgia presents to the ED with c/o left sided chest pain since about 5:45pm today. Said it was sharp, and radiated to left neck and left arm. Said left arm is heavy. Initially had sob with breathing but both chest pain and sob has improved on its own. No exacerbation or alleviating factors. Pt's pressure welder is Dr. Zavala but pt has not had a stress test for years. Denies any new numbness or weakness, had left sided numbness that is old from her myasthenia gravis. Pt follows with Dr. Osman for that. 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) Diabetes: No Diminished Hearing: No Endocrine: No Fibromyalgia: Yes Gastrointestinal Disorders: No GERD: Yes Glaucoma: No Genitourinary: No Headaches: Yes (OCCASIONALLY) Hepatitis: No Hiatal Hernia: No Herniated Disk: Yes (repaired) Hypertension: Yes (pulmonary) Immune Disorder: No Kidney Stones: Yes Medical other: Yes (MYASTHENIA GRAVIS) Musculoskeletal: No Neurologic: No Psychiatric: Yes Reproductive: No Respiratory: Yes Integumentary: No Immunizations Current: Yes Migraines: Yes (RARELY) Myocardial Infarction: No Radiation Therapy: No Renal Failure: No Seizures: No Shingles: Yes Sickle Cell Disease: No Sleep Apnea: Yes Thyroid Disease: No Ulcer: No ?: Not Menopausal: Yes : 3 Para: 2 Miscarriage: 1 Tubal Ligation: Yes Past Surgical History Abdominal Surgery: Yes (APPENDECTOMY, GASTRIC BYPASS) AICD: No Appendectomy: Yes Arteriovenous Shunt: No Cardiac Surgery: Yes (HEART CATHERIZATION) Section: Yes (X 2) Cholecystectomy: No Ear Surgery: No Endocrine Surgery: No Eye Surgery: No Genitourinary Surgery: No Gynecologic Surgery: Yes ( X2) Insulin Pump: No Joint Replacement: No Oral Surgery: No Pacemaker: No Thoracic Surgery: No Other Surgery: Yes (LEFT TOENAIL REMOVED, DEVIATED SEPTUM, HEMORRHOIDECTOMY) Social History Alcohol Use: No Tobacco Use: No (QUIT AGE 50) Substance Use: No Allergies-Medications (Allergen,Severity, Reaction): Coded Allergies: montelukast (Unverified Allergy, Severe, Shortness of Breath, 02/16/17) oxycodone (Unverified Allergy, Severe, 02/16/17) diphenhydramine (Verified Allergy, Intermediate, SKIN CRAWLS, 04/27/17) acetaminophen (Unverified Allergy, Mild, 04/27/17) DENIES amphetamine (Unverified Allergy, Unknown, 02/16/17) "PUTS ME TO SLEEP" dextroamphetamine (Unverified Allergy, Unknown, 02/16/17) "PUTS ME TO SLEEP" ibuprofen (Verified Adverse Reaction, Intermediate, STOMACH, 04/27/17) Uncoded Allergies: PERCOCET. (Allergy, Severe, 07/21/13) Reported Meds & Prescriptions Reported Meds & Active Scripts Active Reported Ambien (Zolpidem Tartrate) 10 Mg Tab 10 Mg PO HS PRN Spironolactone 25 Mg Tab 25 Mg PO DAILY Lyrica (Pregabalin) 300 Mg Cap 300 Mg PO BID Provigil (Modafinil) 200 Mg Tab 200 Mg PO DAILY Vitamin B-Complex 100 Inj (B-Complex Vitamins Inj) 1 Inj Inj 1,000 Mcg IM MONTHLY Avapro (Irbesartan) 150 Mg Tab 150 Mg PO DAILY Furosemide 40 Mg Tab 40 Mg PO BID Duloxetine DR (Duloxetine HCl) 60 Mg Capdr 60 Mg PO DAILY Review of Systems Except as stated in HPI: all other systems reviewed are Neg Physical Exam Narrative GENERAL: 56yo F in mild distress. SKIN: Focused skin assessment warm/dry. HEAD: Atraumatic. Normocephalic. EYES: Pupils equal and round. No scleral icterus. No injection or drainage. ENT: No nasal bleeding or discharge. Mucous membranes pink and moist. NECK: Trachea midline. No JVD. CARDIOVASCULAR: Regular rate and rhythm. No murmur appreciated. RESPIRATORY: No accessory muscle use. Clear to auscultation. Breath sounds equal bilaterally. GASTROINTESTINAL: Abdomen soft, non-tender, nondistended. MUSCULOSKELETAL: No obvious deformities. No clubbing. No cyanosis. No edema. NEUROLOGICAL: Awake and alert. No obvious cranial nerve deficits. Motor grossly within normal limits. Normal speech. PSYCHIATRIC: Appropriate mood and affect; insight and judgment normal. Data Data Last Documented VS Vital Signs Date Time Temp Pulse Resp B/P (MAP) Pulse Ox O2 Delivery O2 Flow Rate FiO2 04/27/17 19:15 48 16 105/54 (71) 98 Room Air 04/27/17 18:28 98.2 Orders Orders Basic Metabolic Panel (Bmp) (04/27/17 18:44) Complete Blood Count With Diff (04/27/17 18:44) Prothrombin Time / Inr (Pt) (04/27/17 18:44) Act Partial Throm Time (Ptt) (04/27/17 18:44) Troponin I (04/27/17 18:44) Chest, Single Ap (04/27/17 18:44) B-Type Natriuretic Peptide (04/27/17 18:45) Creatine Kinase (Cpk) (04/27/17 18:53) Aspirin (Aspirin) (04/27/17 19:00) Nitroglycerin Sl (Nitrostat Sl) (04/27/17 19:00) Electrocardiogram (04/27/17 18:29) Ketorolac Inj (Toradol Inj) (04/27/17 19:45) Admit Order (Ed Use Only) (04/27/17 19:49) Labs Laboratory Tests Test 04/27/17 18:55 White Blood Count 6.8 TH/MM3 Red Blood Count 4.39 MIL/MM3 Hemoglobin 12.4 GM/DL Hematocrit 37.4 % Mean Corpuscular Volume 85.2 FL Mean Corpuscular Hemoglobin 28.2 PG Mean Corpuscular Hemoglobin Concent 33.1 % Red Cell Distribution Width 14.0 % Platelet Count 248 TH/MM3 Mean Platelet Volume 8.9 FL Neutrophils (%) (Auto) 57.0 % Lymphocytes (%) (Auto) 32.9 % Monocytes (%) (Auto) 7.0 % Eosinophils (%) (Auto) 1.8 % Basophils (%) (Auto) 1.3 % Neutrophils # (Auto) 3.9 TH/MM3 Lymphocytes # (Auto) 2.2 TH/MM3 Monocytes # (Auto) 0.5 TH/MM3 Eosinophils # (Auto) 0.1 TH/MM3 Basophils # (Auto) 0.1 TH/MM3 CBC Comment DIFF FINAL Differential Comment Prothrombin Time 10.9 SEC Prothromb Time International Ratio 1.0 RATIO Activated Partial Thromboplast Time 27.3 SEC Blood Urea Nitrogen 14 MG/DL Creatinine 0.77 MG/DL Random Glucose 91 MG/DL Calcium Level 8.3 MG/DL Sodium Level 138 MEQ/L Potassium Level 4.1 MEQ/L Chloride Level 102 MEQ/L Carbon Dioxide Level 27.8 MEQ/L Anion Gap 8 MEQ/L Estimat Glomerular Filtration Rate 78 ML/MIN Total Creatine Kinase 132 U/L Troponin I LESS THAN 0.02 NG/ML B-Type Natriuretic Peptide 8 PG/ML MDM Medical Decision Making Medical Screen Exam Complete: Yes Emergency Medical Condition: Yes Interpretation(s) EKG: Sinus bradycardia at 56bpm. Normal axis. No ST segment elevation or depression. Differential Diagnosis ACS vs. musculoskeletal pain vs. costochondritis vs. pericarditis Narrative Course 56yo F with left sided chest pain that radiated to left neck and left arm. Left arm with heaviness. No trauma. Labs reviewed, no leukocytosis. Troponin negative. CPK normal. BNP 8. CXR showed no acute cardiopulmonary disease. Pt follows with pressure welder Dr. Zavala but has not had stress test for years. Pt given aspirin and sublingual nitro was held because of low blood pressure. Pt also given toradol for left arm pain as that seems very musculoskeletal and reproducible. HR does drop to the high 40s but pt said that is normal for her. BP is also on the lower end. Reviewed, previous vital signs and similar in 09/2016. Discussed with Dr. Noriega and accepted to her service for chest pain center. Diagnosis Primary Impression: Chest pain Qualified Codes: R07.9 - Chest pain, unspecified Admitting Information Admitting Physician Requests: Monica Cuevas DO Apr 27, 2017 18:50
[2017-04-27] MEDS: NITROGLYCERIN 0.4 MG SL 25 TABS/BTL SL SCH ×3 (19:00→19:10)
[2017-04-27] MEDS ORDERED: ASPIRIN 325 MG TAB PO ONE (19:00)
[2017-04-27 19:14] LABS: AUTOMATED NEUTROPHIL # 3.9 TH/MM3 (1.8-7.7); BASOPHIL # 0.1 TH/MM3 (0-0.2); BASOPHIL % 1.3 % (0.0-2.0); EOSINOPHIL # 0.1 TH/MM3 (0-0.4); EOSINOPHIL % 1.8 % (0.0-4.0); HEMATOCRIT 37.4 % (35.0-46.0); HEMOGLOBIN 12.4 GM/DL (11.6-15.3); LYMPH % 32.9 % (9.0-44.0); LYMPHOCYTE # 2.2 TH/MM3 (1.0-4.8); MEAN CELL VOLUME 85.2 FL (80.0-100.0); MEAN CORPUSCULAR HEMOGLOBIN 28.2 PG (27.0-34.0); MEAN CORPUSCULAR HGB CONC 33.1 % (32.0-36.0); MEAN PLATELET VOLUME 8.9 FL (7.0-11.0); MONOCYTE # 0.5 TH/MM3 (0-0.9); PLATELET COUNT 248 TH/MM3 (150-450); RED BLOOD COUNT 4.39 MIL/MM3 (4.00-5.30); WHITE BLOOD COUNT 6.8 TH/MM3 (4.0-11.0)
[2017-04-27 19:15] VITALS: BP 105/54; PULSE 48; RESP 16; O2SAT 98
[2017-04-27 19:19] LABS: CHLORIDE 102 MEQ/L (98-107); SODIUM (NA) 138 MEQ/L (136-145)
[2017-04-27 19:21] LABS: CALCIUM 8.3 MG/DL (8.5-10.1)
[2017-04-27 19:22] LABS: BICARBONATE 27.8 MEQ/L (21.0-32.0); BLOOD UREA NITROGEN 14 MG/DL (7-18); GLUCOSE,RANDOM 91 MG/DL (74-106)
[2017-04-27 19:24] LABS: PROTHROMBIN TIME - PATIENT 10.9 SEC (9.8-11.6)
[2017-04-27 19:25] LABS: CREATININE 0.77 MG/DL (0.50-1.00); GLOMERULAR FILTRATION RATE 78 ML/MIN (>89)
--- NOTE | 2017-04-27 19:26 | RADRPT ---
EXAM DATE/TIME: 04/27/2017 19:16 [facility] COMPARISON: CHEST SINGLE AP, September 25, 2014, 8:32. INDICATIONS : Chest pain today. MEDICAL HISTORY : Hypertension. Congestive heart failure. Myesthenia gravis. SURGICAL HISTORY : Discectomy, lumbar. Gastric bypass. Appendectomy. ENCOUNTER: Initial ACUITY: 1 day PAIN SCORE: 3/10 LOCATION: Bilateral chest FINDINGS: The lungs are clear without infiltrate, nodule, or mass. There is no appreciable pleural effusion fo r technique. Heart and mediastinum are unremarkable. CONCLUSION: No acute cardiopulmonary disease. Gwyn Hernandez MD on April 27, 2017 at 19:24 Board Certified Radiologist. This report was verified electronically.
[2017-04-27 19:30] LABS: TROPONIN I LESS THAN 0.02 NG/ML (0.02-0.05)
[2017-04-27] MEDS ORDERED: KETOROLAC TROMETHAMINE 30 MG/ML (IVP) VIAL IV PUSH ONE (19:45)
[2017-04-27] MEDS ORDERED: SODIUM CHLORIDE 0.9% FLUSH 10 ML FLUSH IV FLUSH PRN (20:00)
[2017-04-27 20:15] VITALS: BP 101/60; PULSE 44; RESP 16; O2SAT 99
[2017-04-27] MEDS: SODIUM CHLORIDE 0.9% FLUSH 10 ML FLUSH IV FLUSH SCH (21:00)
[2017-04-27 21:15] VITALS: BP 93/50; PULSE 50; RESP 16; O2SAT 98
--- NOTE | 2017-04-27 21:32 | EKG ---
Date Performed: 04/27/2017 Time Performed: 18:29:12 PTAGE: 56 years EKG: SINUS BRADYCARDIA BORDERLINE ECG PREVIOUS TRACING : 09/24/2016 20.06 Compared to prior tracing no significant change DOCTOR: Sid Wallis Interpretating Date/Time 04/27/2017 21:31:17
[2017-04-27 22:01] VITALS: BP 98/51; PULSE 51; RESP 20; TEMP 96.5; O2SAT 98
[2017-04-27 22:23] VITALS: PULSE 50
[2017-04-27 23:14] LABS: TROPONIN I LESS THAN 0.02 NG/ML (0.02-0.05)
[2017-04-28] VITALS (7 sets, daily range): BP systolic 92–156; BP diastolic 53–79; PULSE 45–58; RESP 16–20; TEMP 96.1–97.5; O2SAT 93–98
[2017-04-28 01:59] LABS: TROPONIN I LESS THAN 0.02 NG/ML (0.02-0.05)
[2017-04-28] MEDS: SODIUM CHLORIDE 0.9% FLUSH 10 ML FLUSH IV FLUSH SCH (08:14)
[2017-04-28] MEDS ORDERED: DULoxetine HCl DR 60 MG CAP PO SCH (09:00)
[2017-04-28] MEDS ORDERED: PREGABALIN 100 MG CAP PO SCH (09:00)
[2017-04-28] MEDS ORDERED: REGADENOSON INJ 0.4 MG/5 ML SYR IV ONE (10:53)
--- NOTE | 2017-04-28 11:18 | HHI.HP ---
[facility] Fer Moe MD Admission Diagnosis Chest pain Diagnoses: (1) Chest pain Diagnosis: Principal Chief Complaint: Chest pain Travel History International Travel<30 Days: No Contact w/Intl Traveler <30 Da: No Traveled to Known Affected Are: No History of Present Illness Written by Ezequiel Dos Santos, acting as scribe for Dr. Braxton on 04/28/17 at 11:09. 56-year-old female with known history of hypertension, congestive heart failure, CVA, fibromyalgia, myasthenia gravis, depression who presented to hospital because of chest discomfort. Patient states that she was in normal state of health until she is working her second job last night at [employer] in the [facility]. 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 Because of those symptoms she stopped doing her work and ask a fellow employee did take over her customer. Patient states that she had a sharp constant crescendo type chest discomfort located in the left upper chest8/10 on a pain scale. She felt very cold as if she was freezing. She was having some sweating intermittently with her arms and back of her neck. She did not have any nausea, vomiting, lightheadedness, dizziness. Patient states that her discomfort started at 5:45 PM yesterday and she went to the ER within 15 minutes when she got to the ER her pain was already starting resolved. She is given aspirin and Toradol with complete relief of her chest pain and slow relief of her left arm pain. Patient does go to Dr. Zavala for cardiology and saw him November of this year. She states that her last stress test was years ago. Because of the patient's symptoms it was recommended by the ER physician that the patient be observed in the chest pain center for further evaluation and management Review of Systems Constitutional: COMPLAINS OF: Chills Cardiovascular: COMPLAINS OF: Chest pain Except as stated in HPI: all other systems reviewed are Neg Past Family Social History Past Medical History Hypertension Congestive heart failure History of CVA Fibromyalgia Depression Pulmonary hypertension Myasthenia gravis Past Surgical History 2 Appendectomy Gastric bypass surgery Right knee surgery Laminectomy L4-L5 Tubal ligation Cardiac catheterization without any intervention Reported Medications Reported Meds & Active Scripts Active Reported Ambien (Zolpidem Tartrate) 10 Mg Tab 10 Mg PO HS PRN Spironolactone 25 Mg Tab 25 Mg PO DAILY Lyrica (Pregabalin) 300 Mg Cap 300 Mg PO BID Provigil (Modafinil) 200 Mg Tab 200 Mg PO DAILY Vitamin B-Complex 100 Inj (B-Complex Vitamins Inj) 1 Inj Inj 1,000 Mcg IM MONTHLY Avapro (Irbesartan) 150 Mg Tab 150 Mg PO DAILY Furosemide 40 Mg Tab 40 Mg PO BID Duloxetine DR (Duloxetine HCl) 60 Mg Capdr 60 Mg PO DAILY Allergies: Coded Allergies: montelukast (Unverified Allergy, Severe, Shortness of Breath, 02/16/17) oxycodone (Unverified Allergy, Severe, 02/16/17) diphenhydramine (Verified Allergy, Intermediate, SKIN CRAWLS, 04/27/17) acetaminophen (Unverified Allergy, Mild, 04/27/17) DENIES amphetamine (Unverified Allergy, Unknown, 02/16/17) "PUTS ME TO SLEEP" dextroamphetamine (Unverified Allergy, Unknown, 02/16/17) "PUTS ME TO SLEEP" ibuprofen (Verified Adverse Reaction, Intermediate, STOMACH, 04/27/17) Uncoded Allergies: PERCOCET. (Allergy, Severe, 07/21/13) Family History Reviewed is significant for mother having stroke and breast cancer, father with brain and lung cancer, sister with heart disease requiring CABG, other history includes rheumatoid arthritis and lupus Physical Exam Vital Signs Vital Signs Date Time Temp Pulse Resp B/P (MAP) Pulse Ox O2 Delivery O2 Flow Rate FiO2 04/28/17 09:16 45 04/28/17 08:00 96.1 48 18 95/54 (68) 97 04/28/17 07:46 93 21 04/28/17 04:00 96.3 48 20 100/53 (69) 96 04/28/17 00:10 96 21 04/28/17 00:00 96.3 47 20 92/55 (67) 96 04/27/17 22:23 50 04/27/17 22:01 96.5 51 20 98/51 (67) 98 04/27/17 21:30 04/27/17 21:15 50 16 93/50 (64) 98 Room Air 04/27/17 20:15 44 16 101/60 (74) 99 Room Air 04/27/17 19:15 48 16 105/54 (71) 98 Room Air 04/27/17 19:00 50 16 97 Room Air 04/27/17 18:28 98.2 56 15 135/78 (97) 98 Physical Exam GENERAL: Well-developed, well-nourished, in no acute distress. alert and orientated HEENT: Head is normocephalic without any lesions or masses noted. Facial features are symmetric. Eyes: Extraocular muscles are intact. Conjunctivae were clear. Oropharyngeal: Pharynx without any erythema edema. Tongue is midline without deviation. Buccal mucosa is moist without any masses or lesions NECK: Supple without any masses. Trachea midline no deviation. No JVD, no bruits are appreciated CARDIAC: Regular rhythm, regular rate. S1/S2 are heard. No murmurs gallops or rubs. LUNGS: Clear to auscultation bilaterally. No wheeze, rhonchi or rales. No use of accessory muscles on inspiration or expiration. ABDOMEN: Soft, nontender. Nondistended. Bowel sounds heard in all 4 quadrants. No organomegaly or masses. Negative rebound, negative guarding EXTREMITIES: No edema, pulses are equal bilaterally. No cyanosis or clubbing NEUROLOGY: No facial droop, no slurred speech, no tremors Psychiatry: Mood and affect are appropriate Laboratory Laboratory Tests Test 04/27/17 18:55 04/27/17 22:25 04/28/17 01:30 White Blood Count 6.8 Red Blood Count 4.39 Hemoglobin 12.4 Hematocrit 37.4 Mean Corpuscular Volume 85.2 Mean Corpuscular Hemoglobin 28.2 Mean Corpuscular Hemoglobin Concent 33.1 Red Cell Distribution Width 14.0 Platelet Count 248 Mean Platelet Volume 8.9 Neutrophils (%) (Auto) 57.0 Lymphocytes (%) (Auto) 32.9 Monocytes (%) (Auto) 7.0 Eosinophils (%) (Auto) 1.8 Basophils (%) (Auto) 1.3 Neutrophils # (Auto) 3.9 Lymphocytes # (Auto) 2.2 Monocytes # (Auto) 0.5 Eosinophils # (Auto) 0.1 Basophils # (Auto) 0.1 CBC Comment DIFF FINAL Differential Comment Prothrombin Time 10.9 Prothromb Time International Ratio 1.0 Activated Partial Thromboplast Time 27.3 Blood Urea Nitrogen 14 Creatinine 0.77 Random Glucose 91 Calcium Level 8.3 Sodium Level 138 Potassium Level 4.1 Chloride Level 102 Carbon Dioxide Level 27.8 Anion Gap 8 Estimat Glomerular Filtration Rate 78 Total Creatine Kinase 132 108 105 Troponin I LESS THAN 0.02 LESS THAN 0.02 LESS THAN 0.02 B-Type Natriuretic Peptide 8 Creatine Kinase MB 0.8 0.7 Result Diagram: 04/27/17185404/27/171854 Imaging Last Impressions Chest X-Ray 04/27/171843 Signed Impressions: Service Date/Time: Thursday, April 27, 2017 19:16 - CONCLUSION: No acute cardiopulmonary disease. MD Sia Yang VTE Risk Assessment Sia VTE Risk Assessment: No/Low Risk (score <= 1) Caprini Risk Assessment Model Point Value = 1 Point Value = 2 Point Value = 3 Point Value = 5 Age 41-60 Minor surgery BMI > 25 kg/m2 Swollen legs Varicose veins or History of unexplained or recurrent spontaneous Oral contraceptives or hormone replacement Sepsis (< 1 month) Serious lung disease, including pneumonia (< 1 month) Abnormal pulmonary function Acute myocardial infarction Congestive heart failure (< 1 month) History of inflammatory bowel disease Medical patient at bed rest Age 61-74 Arthroscopic surgery Major open surgery (> 45 min) Laparoscopic surgery (> 45 min) Malignancy Confined to bed (> 72 hours) Immobilizing plaster cast Central venous access Age >= 75 History of VTE Family history of VTE Factor V Leiden Prothrombin [id number] Lupus anticoagulant Anticardiolipin antibodies Elevated serum homocysteine Heparin-induced thrombocytopenia Other congenital or acquired thrombophilia Stroke (< 1 month) Elective arthroplasty Hip, pelvis, or leg fracture Acute spinal cord injury (< 1 month) Prophylaxis Regimen Total Risk Factor Score Risk Level Prophylaxis Regimen 0-1 Low Early ambulation 2 Moderate Order ONE of the following: *Sequential Compression Device (SCD) *Heparin 5000 units SQ BID 3-4 Higher Order ONE of the following medications: *Heparin 5000 units SQ TID *Enoxaparin/Lovenox 40 mg SQ daily (WT < 150 kg, CrCl > 30 mL/min) *Enoxaparin/Lovenox 30 mg SQ daily (WT < 150 kg, CrCl > 10-29 mL/min) *Enoxaparin/Lovenox 30 mg SQ BID (WT < 150 kg, CrCl > 30 mL/min) AND/OR *Sequential Compression Device (SCD) 5 or more Highest Order ONE of the following medications: *Heparin 5000 units SQ TID (Preferred with Epidurals) *Enoxaparin/Lovenox 40 mg SQ daily (WT < 150 kg, CrCl > 30 mL/min) *Enoxaparin/Lovenox 30 mg SQ daily (WT < 150 kg, CrCl > 10-29 mL/min) *Enoxaparin/Lovenox 30 mg SQ BID (WT < 150 kg, CrCl > 30 mL/min) AND *Sequential Compression Device (SCD) Assessment and Plan Assessment and Plan Chest pain Patient with increased risk factors to include age, hypertension, congestive heart failure, family history of heart disease, history tobacco use Patient had been ruled out for acute coronary event with serial cardiac enzymes which are negative, serial EKGs show bradycardia without any changes Discussed with patient's child care center assistant director Dr. Zavala, due to the presenting symptoms and no recent stress test will plan nuclear stress test for further evaluation Continue aspirin Hypertension, congestive heart failure Unable to resume patient's home medications due to low blood pressure Fibromyalgia, myasthenia gravis Continue home medications Discharge disposition Discharge home in stable condition if stress test is negative Activity: Ad duran. Diet: Healthy heart diet Medications per medication reconciliation Follow-up with primary medical doctor in one week This note was transcribed by guruibjared Dos Santos. ITj, personally performed the history, physical exam, and medical decision making; and confirmed the accuracy of information in the transcribed note. Authenticated by Tj Braxton on 04/28/17 at 1125. All orders entered by Dennys Dos Santos were at my discretion. Patient's chest pain had resolved and had a negative stress tests. was discharged in stable condition Problem Qualifiers (1) Chest pain: Qualified Codes: R07.9 - Chest pain, unspecified Ezequiel Dos Santos Apr 28, 2017 11:18 Tj Braxton MD Apr 28, 2017 16:02
--- NOTE | 2017-04-28 12:16 | RADRPT ---
EXAM DATE/TIME: 04/28/2017 10:51 [facility] COMPARISON: No previous studies available for comparison. INDICATIONS : Left sided chest pain radiating to the neck with shortness of breath for one day. Angina. DOSE: 26.2 mCi Tc99m Myoview at stress. 8.8 mCi Tc99m Myoview at rest. 0.4 mg Lexiscan STRESS SYMPTOMS: Warm feeling. EJECTION FRACTION: 51% MEDICAL HISTORY : Congestive heart failure. Stroke SURGICAL HISTORY : Appendectomy. Tubal ligation. Gastric bypass. ENCOUNTER: Initial ACUITY: 1 day PAIN SCALE: 5/10 LOCATION: Left chest TECHNIQUE: The patient underwent pharmacologic stress with infusion of prescribed dose. Continuous ECG tracing was monitored during stress. Gated SPECT imaging was performed after stress and conventional SPECT i maging was performed at rest. The examination was performed on a SPECT/CT scanner, both attenuation and non-corrected datasets were reviewed. FINDINGS: DISTRIBUTION: The maximum perfused segment at stress is in the inferior wall. There is a summed stress score of 2. PERFUSION STUDY: The pattern of perfusion at stress is within normal limits. GATED STUDY: There is intact wall motion and thickening without hypokinetic or dyskinetic segments. CONCLUSION: 1. No fixed or reversible wall defects to suggest ischemia or infarction. 2. . Normal wall motion and calculated ejection fraction. RISK CATEGORY: Low (<1% Annual Mortality Rate) Edgar Felix MD on April 28, 2017 at 12:10 Board Certified Radiologist. This report was verified electronically.
--- NOTE | 2017-04-28 13:08 | HHI.DCPOC ---
Discharge Care Plan Diagnosis: (1) Chest pain Your Health Problems Are: Chest Pain Goals to Promote Your Health * To prevent worsening of your condition and complications * To maintain your health at the optimal level Directions to Meet Your Goals Take your medications as prescribed Follow your dietary instruction Follow activity as directed Keep your appointments as scheduled Take your immunizations and boosters as scheduled If your symptoms worsen call your PCP, if no PCP go to Urgent Care Center or Emergency Room Smoking is Dangerous to Your Health. Avoid second hand smoke Call the 24-hour hour crisis hotline for domestic abuse at Ezequiel Dos Santos Apr 28, 2017 13:08
--- NOTE | 2017-04-28 13:08 | HHI.DCPOC ---
Discharge Care Plan Diagnosis: (1) Chest pain Your Health Problems Are: Chest Pain Goals to Promote Your Health * To prevent worsening of your condition and complications * To maintain your health at the optimal level Directions to Meet Your Goals Take your medications as prescribed Follow your dietary instruction Follow activity as directed Keep your appointments as scheduled Take your immunizations and boosters as scheduled If your symptoms worsen call your PCP, if no PCP go to Urgent Care Center or Emergency Room Smoking is Dangerous to Your Health. Avoid second hand smoke Call the 24-hour hour crisis hotline for domestic abuse at Ezequiel Dos Santos Apr 28, 2017 13:08
--- NOTE | 2017-04-28 13:08 | HHI.DCPOC ---
Discharge Care Plan Diagnosis: (1) Chest pain Your Health Problems Are: Chest Pain Goals to Promote Your Health * To prevent worsening of your condition and complications * To maintain your health at the optimal level Directions to Meet Your Goals Take your medications as prescribed Follow your dietary instruction Follow activity as directed Keep your appointments as scheduled Take your immunizations and boosters as scheduled If your symptoms worsen call your PCP, if no PCP go to Urgent Care Center or Emergency Room Smoking is Dangerous to Your Health. Avoid second hand smoke Call the 24-hour hour crisis hotline for domestic abuse at Ezequiel Dos Santos Apr 28, 2017 13:08
--- NOTE | 2017-04-28 16:12 | EKG ---
Date Performed: 04/28/2017 Time Performed: 00:11:34 PTAGE: 56 years EKG: SINUS BRADYCARDIA BORDERLINE ECG PREVIOUS TRACING : 04/27/2017 22.22 Since previous tracing, no significant change noted DOCTOR: Mann Zuniga Interpretating Date/Time 04/28/2017 16:11:51
--- NOTE | 2017-04-28 16:16 | EKG ---
Date Performed: 04/27/2017 Time Performed: 22:22:30 PTAGE: 56 years EKG: SINUS BRADYCARDIA BORDERLINE ECG PREVIOUS TRACING : 04/27/2017 18.29 Since previous tracing, no significant change noted DOCTOR: Mann Zuniga Interpretating Date/Time 04/28/2017 16:13:47
--- NOTE | 2017-04-28 16:19 | TR ---
Date Performed: 04/28/2017 Time Performed: 11:14:47 DOCTOR: Mann Zuniga DRUG LIST: CLINICAL HISTORY: ANGINA REASON FOR TEST: Angina REASON FOR ENDING: OBSERVATION: CONCLUSION: Lexiscan stress test was performed under standard four minute protocol. Radionuclid e was injected one minute prior to ending the test. No electrocardiographic abormalities were present to suggest ischemia. Nuclear imaging and interpretation are pending. COMMENTS:
== END 2017-04-28 15:16 | disposition home or self-care (01) ==
LOC: PHED 18:22 → PHEDA 19:50 → PH3A 21:35
PROVIDERS: ADMIT Hospitalist; ATTEND Hospitalist
DX: R07.89 Other chest pain (principal); R06.02 Shortness of breath; I11.0 Hypertensive heart disease with heart failure; I50.9 Heart failure, unspecified; M79.7 Fibromyalgia; G70.00 Myasthenia gravis without (acute) exacerbation; M79.602 Pain in left arm; I27.20 Pulmonary hypertension, unspecified; Z86.73 Personal history of transient ischemic attack (TIA), and cerebral infarction without residual deficits; Z98.84 Bariatric surgery status
CPT/HCPCS: 71010; 78452; 80048; 82550; 82552; 83880; 84484; 85025; 85610; 85730; 93005; 93017; 96374; 96376; 99285; A9502; G0378; J1885; J2785

== ENCOUNTER 2017-09-14 06:50 | Inpatient (IN) | payer BC ==
[2017-09-14] VITALS (15 sets, daily range): BP systolic 91–124; BP diastolic 45–65; PULSE 50–65; RESP 14–18; TEMP 97.3–97.8; O2SAT 93–99
[~2017-09-14] VITALS: Ht 160 cm; Wt 98.1 kg
[~2017-09-14 06:50] MED LIST changes: -FURO40TA PO; +MODA1TAB31 PO; -MULTCAP; -PROV200T11 PO; -PYRI60 PO
[2017-09-14] MEDS ORDERED: SODIUM CHLOR 0.9% 1000 ML INJ 1,000 ML IV ONE (06:58)
[2017-09-14 07:16] LABS: AUTOMATED NEUTROPHIL # 2.8 TH/MM3 (1.8-7.7); BASOPHIL # 0.1 TH/MM3 (0-0.2); BASOPHIL % 1.2 % (0.0-2.0); EOSINOPHIL # 0.2 TH/MM3 (0-0.4); HEMATOCRIT 37.8 % (35.0-46.0); HEMOGLOBIN 12.5 GM/DL (11.6-15.3); LYMPHOCYTE # 2.4 TH/MM3 (1.0-4.8); MEAN CELL VOLUME 84.3 FL (80.0-100.0); MEAN CORPUSCULAR HEMOGLOBIN 27.9 PG (27.0-34.0); MEAN CORPUSCULAR HGB CONC 33.1 % (32.0-36.0); MEAN PLATELET VOLUME 8.7 FL (7.0-11.0); MONO % 7.3 % (0.0-8.0); MONOCYTE # 0.4 TH/MM3 (0-0.9); NEUT % 47.5 % (16.0-70.0); PLATELET COUNT 299 TH/MM3 (150-450); RED BLOOD COUNT 4.48 MIL/MM3 (4.00-5.30); RED CELL DISTRIBUTION WIDTH 14.1 % (11.6-17.2); WHITE BLOOD COUNT 5.9 TH/MM3 (4.0-11.0)
[2017-09-14 07:19] LABS: CHLORIDE 101 MEQ/L (98-107); SODIUM (NA) 138 MEQ/L (136-145)
[2017-09-14 07:21] LABS: CALCIUM 8.2 MG/DL (8.5-10.1)
[2017-09-14 07:22] LABS: BICARBONATE 31.5 MEQ/L (21.0-32.0); BLOOD UREA NITROGEN 12 MG/DL (7-18); GLUCOSE,RANDOM 124 MG/DL (74-106); PROTHROMBIN TIME - PATIENT 10.2 SEC (9.8-11.6)
[2017-09-14 07:25] LABS: CREATININE 0.81 MG/DL (0.50-1.00); GLOMERULAR FILTRATION RATE 73 ML/MIN (>89)
[2017-09-14 07:30] LABS: TROPONIN I LESS THAN 0.02 NG/ML (0.02-0.05)
--- NOTE | 2017-09-14 07:35 | RADRPT ---
EXAM DATE/TIME: 09/14/2017 07:03 [facility] COMPARISON: No previous studies available for comparison. INDICATIONS : Stroke alert. Tongue deviation to the right. RADIATION DOSE: 59.81 CTDIvol (mGy) This report was called by myself to Dr. Escalante of ER at 7: 25 hours there MEDICAL HISTORY : None SURGICAL HISTORY : None. ENCOUNTER: Initial ACUITY: 1 day PAIN SCALE: 0/10 LOCATION: cranial TECHNIQUE: Multiple contiguous axial images were obtained of the head. Using automated exposure control and adj ustment of the mA and/or kV according to patient size, radiation dose was kept as low as reasonably a chievable to obtain optimal diagnostic quality images. DICOM format image data is available electro nically for review and comparison. FINDINGS: There is no evidence for intracranial hemorrhage, mass effect, mass lesions, edema, or extra-axial fl uid collections. The visualized bony structures appear intact. The ventricles are normal size for t he patient's age. There are no signs of acute infarction for technique. CONCLUSION: Unremarkable study. KLuis Fernando Hernandez MD on September 14, 2017 at 7:25 Board Certified Radiologist. This report was verified electronically.
[2017-09-14] MEDS ORDERED: FURO1TAB60 PO (07:40)
[2017-09-14] MEDS ORDERED: IV IG IV (07:42)
[2017-09-14] MEDS ORDERED: IBUPROFEN 600 MG TAB PO ONE (08:15)
--- NOTE | 2017-09-14 08:43 | PD ---
HPI Chief Complaint: Stroke Alert Time Seen by Provider: 08:06 Travel History International Travel<30 days: No Contact w/Intl Traveler<30days: No Traveled to known affect area: No History of Present Illness HPI This is a 57-year-old female who presents to the ER complaining of double vision and slurred speech that she noticed this morning. Patient has a history of myasthenia gravis and is compliant with her medications. Patient states that she went to bed last night around 11 at night and woke up this morning noticing that she has double vision and change in her speech. Patient has history of stroke in 2015 that affected the left side of her body but she is ambulatory and able to walk and do all her daily activities with minimal problems. Patient denies any new weakness in her arms or legs and her main symptom is double vision and slurred speech. She states that she was making coffee this morning around 5:00 and noticed double vision which made her anxious , she also reports imbalance walking this morning when she noticed the double vision that she best describes as "walking drunk". She denies any fall or loss of consciousness or head trauma or vomiting. She denies any difficulty swallowing although reports dry mouth and headache. PFSH Past Medical History Anemia: Yes Arthritis: Yes (fingers, toes, knees ) Asthma: No Autoimmune Disease: No Blood Disorders: No Anxiety: No Depression: Yes Heart Rhythm Problems: No Cancer: No Cardiac Catheterization: Yes (AGE 50) Cardiovascular Problems: Yes High Cholesterol: No Chemotherapy: No Chest Pain: No Congestive Heart Failure: Yes COPD: No Cerebrovascular Accident: Yes Diabetes: No Diminished Hearing: No Endocrine: No Fibromyalgia: Yes Gastrointestinal Disorders: No GERD: Yes Glaucoma: No Genitourinary: No Headaches: Yes Hepatitis: No Hiatal Hernia: No Herniated Disk: Yes (repaired) Hypertension: Yes (pulmonary) Immune Disorder: No Kidney Stones: Yes Medical other: Yes (MYASTHENIA GRAVIS) Musculoskeletal: No Neurologic: No Psychiatric: Yes Reproductive: No Respiratory: No Integumentary: No Immunizations Current: Yes Migraines: Yes (RARELY) Myocardial Infarction: No Radiation Therapy: No Renal Failure: No Seizures: No Shingles: Yes Sickle Cell Disease: No Sleep Apnea: Yes Thyroid Disease: No Ulcer: No ?: Not Menopausal: Yes : 3 Para: 2 Miscarriage: 1 Tubal Ligation: Yes Past Surgical History Abdominal Surgery: Yes ( GASTRIC BYPASS) AICD: No Appendectomy: Yes Arteriovenous Shunt: No Cardiac Surgery: Yes (HEART CATHERIZATION) Section: Yes (X 2) Cholecystectomy: No Ear Surgery: No Endocrine Surgery: No Eye Surgery: No Genitourinary Surgery: No Gynecologic Surgery: Yes ( X2) Insulin Pump: No Joint Replacement: No Oral Surgery: No Pacemaker: No Thoracic Surgery: No Other Surgery: Yes (LEFT TOENAIL REMOVED, DEVIATED SEPTUM, HEMORRHOIDECTOMY) Social History Alcohol Use: No Tobacco Use: No (QUIT AGE 50) Substance Use: No Allergies-Medications (Allergen,Severity, Reaction): Coded Allergies: montelukast (Unverified Allergy, Severe, Shortness of Breath, 09/14/17) oxycodone (Unverified Allergy, Severe, 09/14/17) diphenhydramine (Verified Allergy, Intermediate, SKIN CRAWLS, 09/14/17) acetaminophen (Unverified Allergy, Mild, DENIES, 09/14/17) DENIES amphetamine (Unverified Allergy, Unknown, 09/14/17) "PUTS ME TO SLEEP" dextroamphetamine (Unverified Allergy, Unknown, 09/14/17) "PUTS ME TO SLEEP" ibuprofen (Verified Adverse Reaction, Intermediate, STOMACH, 09/14/17) Uncoded Allergies: PERCOCET. (Allergy, Severe, 07/21/13) Reported Meds & Prescriptions Reported Meds & Active Scripts Active Reported [Iv Ig] Unknown Dose IV MONTHLY Lasix (Furosemide) 40 Mg Tab 40 Mg PO BID Ambien (Zolpidem Tartrate) 10 Mg Tab 10 Mg PO HS PRN Spironolactone 25 Mg Tab 25 Mg PO DAILY Lyrica (Pregabalin) 300 Mg Cap 300 Mg PO BID Provigil (Modafinil) 200 Mg Tab 200 Mg PO DAILY Vitamin B-Complex 100 Inj (B-Complex Vitamins Inj) 1 Inj Inj 1,000 Mcg IM MONTHLY Avapro (Irbesartan) 150 Mg Tab 150 Mg PO DAILY Duloxetine DR (Duloxetine HCl) 60 Mg Capdr 60 Mg PO DAILY Review of Systems Except as stated in HPI: all other systems reviewed are Neg Physical Exam Narrative GENERAL: Alert oriented 3. SKIN: Focused skin assessment warm/dry. HEAD: Atraumatic. Normocephalic. EYES: Pupils equal and round. No scleral icterus. No injection or drainage. ENT: No nasal bleeding or discharge. Mucous membranes pink and moist. NECK: no neck rigidity.Trachea midline. No JVD. CARDIOVASCULAR: Regular rate and rhythm. No murmur appreciated. RESPIRATORY: No accessory muscle use. Clear to auscultation. Breath sounds equal bilaterally. GASTROINTESTINAL: Abdomen soft, non-tender, nondistended. Hepatic and splenic margins not palpable. MUSCULOSKELETAL: No obvious deformities. No clubbing. No cyanosis. No edema. NEUROLOGICAL: Left ptosis, asymetrical nasal fold, asymetrical left labial fold , tongue deviation to the right although able to move it to the left when assisted, uvula midline, EOMI with some hesitancy on Left bulbar muscles, PERRL , weakness and hyper-reflexia on left arm and leg, slurred speech. PSYCHIATRIC: Appropriate mood and affect; insight and judgment normal. Data Data Last Documented VS Vital Signs Date Time Temp Pulse Resp B/P (MAP) Pulse Ox O2 Delivery O2 Flow Rate FiO2 09/14/17 06:55 98 Room Air 09/14/17 06:55 97.8 65 15 119/65 (83) Orders Orders Ct Brain W/O Iv Contrast(Rout) (09/14/17 ) Cath For Specimen (09/14/17 06:58) Neuro Checks Q2HX12,Q4H (09/14/17 06:58) Nursing Bedside Swallow Assess .ONCE (09/14/17 06:58) Activity Bed Rest (09/14/17 06:58) Diet Npo (09/14/17 Breakfast) Prothrombin Time / Inr (Pt) (09/14/17 06:58) Act Partial Throm Time (Ptt) (09/14/17 06:58) Complete Blood Count With Diff (09/14/17 06:58) Basic Metabolic Panel (Bmp) (09/14/17 06:58) Fibrinogen (09/14/17 06:58) Creatine Kinase (Cpk) (09/14/17 06:58) Troponin I (09/14/17 06:58) Ua Includes Microscopic (09/14/17 06:58) Drug Screen, Random Urine (09/14/17 06:58) Type And Screen (09/14/17 06:58) Electrocardiogram (09/14/17 ) Beta Hcg (Quant/Titer) (09/14/17 06:58) Sodium Chlor 0.9% 1000 Ml Inj (Ns 1000 M (09/14/17 06:58) Blood Glucose (09/14/17 06:58) Ecg Monitoring (09/14/17 06:58) Iv Access Insert/Monitor (09/14/17 06:58) NPO (09/14/17 06:58) Oximetry (09/14/17 06:58) Resp Oxygen Nc Stroke (09/14/17 ) Ibuprofen (Motrin) (09/14/17 08:15) Ketorolac Inj (Toradol Inj) (09/14/17 08:45) Admit To Inpatient (09/14/17 ) Vital Signs (Adult) Q4H (09/14/17 08:49) Activity Oob With Assistance (09/14/17 08:49) Tire Service Technician / Telemetry .CONTINUOUS (09/14/17 08:49) Sodium Chlor 0.9% 1000 Ml Inj (Ns 1000 M (09/14/17 08:49) Sodium Chloride 0.9% Flush (Ns Flush) (09/14/17 09:00) Sodium Chloride 0.9% Flush (Ns Flush) (09/14/17 09:00) Ondansetron Inj (Zofran Inj) (09/14/17 09:00) Comprehensive Metabolic Panel (09/15/17 06:00) Complete Blood Count With Diff (09/15/17 06:00) Pt Request For Service (09/14/17 08:49) Ot Request For Service (09/14/17 08:49) Speech Therapy Consult-Eval/Tx (09/14/17 08:49) Scd Bilateral/Knee High SANGITA.BID (09/14/17 08:49) Naloxone Inj (Narcan Inj) (09/14/17 09:00) Magnesium Hydroxide Liq (Milk Of Magnesi (09/14/17 09:00) Inpatient Certification (09/14/17 ) Nih Stroke Scale - Nihss .On admission and discharge (09/14/17 08:51) Case Management Consult (09/14/17 ) Nursing Bedside Swallow Assess .ONCE (09/14/17 08:51) Scd Bilateral/Knee High SANGITA.QSHIFT (09/14/17 08:51) Hemoglobin (Hgb) A1c (09/14/17 08:51) Lipid Profile (09/15/17 06:00) Us Carotid Arteries Comp Bilat (09/14/17 ) Mra Brain W/O Contrast (Cow) (09/14/17 ) Mri Brain W/O Contrast (09/14/17 ) Resp Oxygen Nc Stroke (09/14/17 ) ^ Hold Medication (09/14/17 08:51) Consult Neurology (09/14/17 ) Sodium Chloride 0.9% Flush (Ns Flush) (09/14/17 09:00) Sodium Chloride 0.9% Flush (Ns Flush) (09/14/17 09:00) Aspirin Chew (Aspirin Chew) (09/14/17 09:00) Pravastatin (Pravachol) (09/14/17 21:00) Tire Service Technician / Telemetry SANGITA.Q8H (09/14/17 08:51) Consult Stroke Navigator (09/14/17 ) Admit Order (Ed Use Only) (09/14/17 08:55) Labs Laboratory Tests Test 09/14/17 06:55 White Blood Count 5.9 TH/MM3 Red Blood Count 4.48 MIL/MM3 Hemoglobin 12.5 GM/DL Hematocrit 37.8 % Mean Corpuscular Volume 84.3 FL Mean Corpuscular Hemoglobin 27.9 PG Mean Corpuscular Hemoglobin Concent 33.1 % Red Cell Distribution Width 14.1 % Platelet Count 299 TH/MM3 Mean Platelet Volume 8.7 FL Neutrophils (%) (Auto) 47.5 % Lymphocytes (%) (Auto) 40.0 % Monocytes (%) (Auto) 7.3 % Eosinophils (%) (Auto) 4.0 % Basophils (%) (Auto) 1.2 % Neutrophils # (Auto) 2.8 TH/MM3 Lymphocytes # (Auto) 2.4 TH/MM3 Monocytes # (Auto) 0.4 TH/MM3 Eosinophils # (Auto) 0.2 TH/MM3 Basophils # (Auto) 0.1 TH/MM3 CBC Comment DIFF FINAL Differential Comment Prothrombin Time 10.2 SEC Prothromb Time International Ratio 1.0 RATIO Activated Partial Thromboplast Time 25.2 SEC Fibrinogen 367 mg/dL Blood Urea Nitrogen 12 MG/DL Creatinine 0.81 MG/DL Random Glucose 124 MG/DL Calcium Level 8.2 MG/DL Sodium Level 138 MEQ/L Potassium Level 3.6 MEQ/L Chloride Level 101 MEQ/L Carbon Dioxide Level 31.5 MEQ/L Anion Gap 6 MEQ/L Estimat Glomerular Filtration Rate 73 ML/MIN Total Creatine Kinase 157 U/L Troponin I LESS THAN 0.02 NG/ML Human Chorionic Gonadotropin, Quant 2 MIU/ML MDM Medical Decision Making Medical Screen Exam Complete: Yes Emergency Medical Condition: Yes Differential Diagnosis New Versus old CVA, myasthenia gravis exacerbation. Narrative Course This is a 57-year-old female with history of myasthenia gravis presented to the ER complaining of double vision, headache, slurred speech. Stroke alert was initiated, CT brain is negative for bleeding, she states her her symptoms were first noticed around 530 this morning when she woke up to make coffee, last time she was normal was around 1030 to 11 PM last night. NIH score is 10, she received aspirin at home prior to arrival, this could be A NEW CVA or could be a myasthenia gravis exacerbation. Even if it is anew CVA, given the fact that we're unsure of the timing of the onset of symptoms I do not think this patient is a candidate for TPA. I spoke with neurology on-call dr. Moran and he gave his recommendations and will admit the patient for further evaluation and possible MRA of the brain. Diagnosis Primary Impression: CVA (cerebral vascular accident) Qualified Codes: I63.9 - Cerebral infarction, unspecified Admitting Information Admitting Physician Requests: Observation Condition: Stable Dustin Escalante MD Sep 14, 2017 08:43
[2017-09-14] MEDS ORDERED: KETOROLAC TROMETHAMINE 30 MG/ML (IVP) VIAL IV PUSH ONE (08:45)
[2017-09-14] MEDS ORDERED: SODIUM CHLORIDE 0.9% FLUSH 10 ML FLUSH IV FLUSH SCH (09:00)
[2017-09-14] MEDS ORDERED: ONDANSETRON HCL 4 MG/2 ML VIAL IVP PRN (09:00)
[2017-09-14] MEDS: ASPIRIN 81 MG CHEW TAB PO SCH (09:00)
[2017-09-14] MEDS: SODIUM CHLORIDE 0.9% FLUSH 10 ML FLUSH IV FLUSH SCH ×2 (09:00→20:23)
[2017-09-14] MEDS ORDERED: NALOXONE HCL 0.4 MG/ML AMP IV PUSH PRN (09:00)
[2017-09-14] MEDS ORDERED: MAGNESIUM HYDROXIDE SUSP 30 ML CUP PO PRN (09:00)
[2017-09-14] MEDS ORDERED: SODIUM CHLORIDE 0.9% FLUSH 10 ML FLUSH IV FLUSH PRN ×2 (09:00)
[2017-09-14 09:11] LABS: BILIRUBIN, URINE NEG (NEG); BLOOD, URINE NEG (NEG); GLUCOSE,URINE NEG (NEG); KETONE, URINE NEG (NEG); NITRITE,URINE NEG (NEG); PH, URINE 6.5 (5.0-8.5); URINE LEUKOCYTE ESTERASE NEG (NEG)
[2017-09-14 09:12] LABS: URINE COLOR STRAW (YELLW/STRAW)
[2017-09-14 09:41] LABS: WBC, URINE 0-2 /hpf (0-5)
[2017-09-14 09:42] LABS: MUCUS URINE RARE /lpf (OCC)
[2017-09-14] MEDS: SODIUM CHLOR 0.9% 1000 ML INJ 1,000 ML IV SCH ×2 (09:42→20:24)
--- NOTE | 2017-09-14 10:15 | RADRPT ---
EXAM DATE/TIME: 09/14/2017 09:37 [facility] COMPARISON: US CAROTID ARTERIES, September 25, 2014, 14:37. INDICATIONS : Cerebrovascular accident. MEDICAL HISTORY : Hypertension. Gastroesophageal reflux disease. Migraine. Congestive heart failure. Arthritis. SURGICAL HISTORY : Gastric bypass. section. Tubal ligation. Cardaic catheterization. Laminectomy. Discectomy. Right meniscus repair. Hemorroidectomy. Deviated septum repair. ENCOUNTER: Initial ACUITY: 1 day PAIN SCORE: 0/10 LOCATION: Right neck PEAK SYSTOLIC VELOCITIES (cm/sec): ICA/CCA RATIO: Right: 1.0 Left: 1.0 ICA: Right: 67 Left: 117 CCA: Right: 93 Left: 117 ECA: Right: 84 Left: 77 VERTEBRAL: Right: 52 antegrade Left: 49 antegrade Elevated flow velocities and ICA/CCA ratios have been found to correlate with increased degrees of vessel stenosis, calculated as percentage of diameter relative to a normal segment of distal ICA/CCA FINDINGS: RIGHT CAROTID: No significant stenosis is visualized. The waveforms are within normal limits. LEFT CAROTID: No significant stenosis is visualized. The waveforms are within normal limits. VERTEBRAL ARTERIES: Antegrade flow is seen in both vertebral arteries. MISCELLANEOUS: None. CONCLUSION: 1. Minimal carotid plaque without significant flow-limiting stenosis. 2. Antegrade vertebral artery flow bilaterally. Zhang Horvath MD on September 14, 2017 at 10:10 Board Certified Radiologist. This report was verified electronically.
--- NOTE | 2017-09-14 10:32 | OTSOAPIP ---
TIME SESSION COMPLETED: 937 TREATMENT TIME: 0 MINS. CHART REVIEWED. O: ATTEMPTED TO SEE FOR OT ASSESSMENT, HOWEVER IN PROCESS OF ULTRASOUND AND THEN OFF TO MRI. WILL FOLLOW. Therapist: HADLEY COOLEY OT/L Signature on file
--- NOTE | 2017-09-14 11:09 | RADRPT ---
EXAM DATE/TIME: 09/14/2017 10:37 [facility] COMPARISON: MRI BRAIN W/O CONTRAST, September 25, 2014, 16:35. MRI BRAIN W & W/O CONTRAST, September 27, 2016, 10:26. INDICATIONS : Slurred speech. MEDICAL HISTORY : Hypertension. Congestive heart failure. SURGICAL HISTORY : Gastric bypass. Appendectomy. Discectomy, lumbar. ENCOUNTER: Initial ACUITY: 1 day PAIN SCORE: 0/10 LOCATION: head TECHNIQUE: Multiplanar, multisequence MRI of the brain was performed without contrast. FINDINGS: CEREBRUM: The ventricles are normal for age. No evidence of midline shift, mass lesion, hemorrhage or acute in farction. No extraaxial fluid collections are seen. The pituitary gland and suprasellar cistern are normal in configuration. WHITE MATTER: No significant signal abnormalities are seen in the white matter. POSTERIOR FOSSA: The examination demonstrates increased T2 signal within the gael. This is stable compared to previous dated 09/27/16. The fourth ventricle is midline. The cerebellum is intact. The cerebellopontine angle s are unremarkable in appearance. DIFFUSION IMAGING: No focal areas of restricted diffusion are seen. No evidence of acute infarction. EXTRACRANIAL: The visualized portions of the orbits and paranasal sinuses are unremarkable. CONCLUSION: 1. There is increased T2 signal in the gael. The overall appearance is nonspecific. Differential cons iderations include microvascular ischemic demyelinative change, A demyelinating process such as MS or electrolyte abnormality. This is unchanged compared to the previous studies dated 09/25/14 and 7. Moose Spain MD on September 14, 2017 at 11:03 Board Certified Radiologist. This report was verified electronically.
--- NOTE | 2017-09-14 11:41 | RADRPT ---
EXAM DATE/TIME: 09/14/2017 10:37 [facility] COMPARISON: MRI BRAIN W/O CONTRAST, September 14, 2017, 10:37. MRA BRAIN W/O CONTRAST, September 25, 2014, 16:35. INDICATIONS : Slurred speech. MEDICAL HISTORY : Hypertension. Congestive heart failure. SURGICAL HISTORY : Gastric bypass. Appendectomy. Discectomy, lumbar. ENCOUNTER: Initial ACUITY: 1 day PAIN SCORE: 0/10 LOCATION: Head Please note a normal MRA of the brain does not entirely exclude the possibility of a small aneurysm, nor the possibility of distal intracranial vessel disease. TECHNIQUE: 3D time of flight MRA was performed. Source images, multiplanar STS MIP, and 3D volume MIP reconstru ctions were reviewed. FINDINGS: Anterior circulation: Distal intracranial internal carotid arteries are patent with flow extending to the middle and anteri or cerebral arteries. There is no evidence for aneurysm, vessel truncation or stenosis, and no eviden ce for vascular malformation. Posterior circulation: Symmetric distal vertebral arteries with flow extending to basilar artery. 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 There is no evidence for aneurysm, vessel truncation or stenosis, and no evidence for vascular m alformation. CONCLUSION: 1. Unremarkable MRA examination of the [place]. Specifically, no evidence for significant st enosis or large vessel occlusion. Zhang Horvath MD on September 14, 2017 at 11:36 Board Certified Radiologist. This report was verified electronically.
[2017-09-14 15:49] LABS: HEMOGLOBIN A1C 5.5 % (4.3-6.0)
--- NOTE | 2017-09-14 17:36 | HHI.HP ---
[facility] Fer Moe MD Admission Diagnosis CVA, MYASENIA GRAVIS EXACERBATION. Diagnoses: (1) Myasthenia exacerbation Travel History International Travel<30 Days: No Contact w/Intl Traveler <30 Da: No Traveled to Known Affected Are: No History of Present Illness Mrs. Salcedo is a 57-year-old female. She came in secondary to weakness including slurred speech, ptosis, and double vision. She has a history of myasthenia gravis and has had similar symptoms before in the past. She reports that her symptoms today are worse than her baseline. She follows with neurology as an outpatient and has had IVIG in the past and for maintenance. No other complaints today. No difficulty swallowing. No difficulty breathing. No fevers. No other signs of infection. MRI of brain shows no evidence of acute CVA. Review of Systems Constitutional: COMPLAINS OF: Fatigue, DENIES: Fever, Chills Eyes: COMPLAINS OF: Blurred vision, Diplopia, Double Vision Respiratory: DENIES: Cough, Wheezing, Shortness of breath Cardiovascular: DENIES: Chest pain, Palpitations, Syncope Gastrointestinal: DENIES: Abdominal pain, Black stools, Bloody stools Musculoskeletal: DENIES: Joint pain, Muscle aches, Stiffness, Joint Swelling Integumentary: DENIES: Abnormal pigmentation, Pruritus, Rash, Nail changes Hematologic/lymphatic: DENIES: Bruising, Lymphadenopathy Immunologic/allergic: DENIES: Eczema, Urticaria Neurologic: COMPLAINS OF: Localized weakness, DENIES: Abnormal gait, Headache Psychiatric: DENIES: Anxiety, Confusion, Hallucinations Past Family Social History Past Medical History Myasthenia gravis Anemia Osteoarthritis History of depression Coronary artery disease Congestive heart failure History of CVA Fibromyalgia History of headaches Gastroesophageal reflux disease History of herniated disc Pulmonary hypertension Nephrolithiasis History of shingles Sleep apnea Past Surgical History Gastric bypass surgery Appendectomy Cardiac catheterization 2 C-sections Deviated septum repair Hemorrhoidectomy Left toenail removal Reported Medications Reported Meds & Active Scripts Active Reported [Iv Ig] Unknown Dose IV MONTHLY Lasix (Furosemide) 40 Mg Tab 40 Mg PO BID Ambien (Zolpidem Tartrate) 10 Mg Tab 10 Mg PO HS PRN Spironolactone 25 Mg Tab 25 Mg PO DAILY Lyrica (Pregabalin) 300 Mg Cap 300 Mg PO BID Provigil (Modafinil) 200 Mg Tab 200 Mg PO DAILY Vitamin B-Complex 100 Inj (B-Complex Vitamins Inj) 1 Inj Inj 1,000 Mcg IM MONTHLY Avapro (Irbesartan) 150 Mg Tab 150 Mg PO DAILY Duloxetine DR (Duloxetine HCl) 60 Mg Capdr 60 Mg PO DAILY Allergies: Coded Allergies: montelukast (Unverified Allergy, Severe, Shortness of Breath, 09/14/17) oxycodone (Unverified Allergy, Severe, 09/14/17) diphenhydramine (Verified Allergy, Intermediate, SKIN CRAWLS, 09/14/17) acetaminophen (Unverified Allergy, Mild, DENIES, 09/14/17) DENIES amphetamine (Unverified Allergy, Unknown, 09/14/17) "PUTS ME TO SLEEP" dextroamphetamine (Unverified Allergy, Unknown, 09/14/17) "PUTS ME TO SLEEP" ibuprofen (Verified Adverse Reaction, Intermediate, STOMACH, 09/14/17) Uncoded Allergies: PERCOCET. (Allergy, Severe, 07/21/13) Active Ordered Medications Administered Medications Medications (Trade) Dose Ordered Sig/Padmaja Route PRN Reason Start Time Stop Time Status Last Admin Dose Admin Sodium Chloride 1,000 ml @ 100 mls/hr Q10H IV 09/14/17 08:49 09/14/17 09:42 Family History Renal cancer and brain cancer in father Hypertension and CVA in mother Lupus in sister Rheumatoid arthritis and juvenile rheumatoid arthritis in 2 daughters Social History No alcohol abuse No illicit substance abuse Patient is a past history of smoking and quit in 2010. Physical Exam Vital Signs Vital Signs Date Time Temp Pulse Resp B/P (MAP) Pulse Ox O2 Delivery O2 Flow Rate FiO2 09/14/17 17:00 97.3 51 18 114/64 (81) 96 09/14/17 12:00 97.5 53 18 107/61 (76) 93 09/14/17 11:30 53 09/14/17 11:10 97.5 50 18 93/53 (66) 96 09/14/17 10:45 09/14/17 10:16 58 15 102/55 (71) 96 Room Air 09/14/17 10:15 96 21 09/14/17 09:46 54 15 101/54 (70) 96 Room Air 09/14/17 09:16 54 16 105/55 (72) 96 Room Air 09/14/17 08:46 56 16 106/56 (73) 97 Room Air 09/14/17 08:16 54 15 109/60 (76) 96 Room Air 09/14/17 07:46 56 14 106/55 (72) 98 Room Air 09/14/17 07:16 59 16 107/58 (74) 99 Room Air 09/14/17 06:55 98 Room Air 09/14/17 06:55 97.8 65 15 119/65 (83) 98 09/14/17 06:55 65 15 09/14/17 06:55 15 98 Room Air Physical Exam GENERAL: NAD, A&Ox3 HEAD: Normocephalic. NECK: Supple, trachea midline. No lymphadenopathy. EYES: No scleral icterus. No injection or drainage. CARDIOVASCULAR: Regular rate and rhythm without murmurs, gallops, or rubs. RESPIRATORY: Breath sounds equal bilaterally. No accessory muscle use. GASTROINTESTINAL: Abdomen soft, non-tender, nondistended. MUSCULOSKELETAL: No cyanosis, or edema. SKIN: Warm and dry. NEURO: Ptosis of eyes bilaterally, double vision, global weakness, slurred speech Laboratory Laboratory Tests Test 09/14/17 06:55 09/14/17 09:00 White Blood Count 5.9 Red Blood Count 4.48 Hemoglobin 12.5 Hematocrit 37.8 Mean Corpuscular Volume 84.3 Mean Corpuscular Hemoglobin 27.9 Mean Corpuscular Hemoglobin Concent 33.1 Red Cell Distribution Width 14.1 Platelet Count 299 Mean Platelet Volume 8.7 Neutrophils (%) (Auto) 47.5 Lymphocytes (%) (Auto) 40.0 Monocytes (%) (Auto) 7.3 Eosinophils (%) (Auto) 4.0 Basophils (%) (Auto) 1.2 Neutrophils # (Auto) 2.8 Lymphocytes # (Auto) 2.4 Monocytes # (Auto) 0.4 Eosinophils # (Auto) 0.2 Basophils # (Auto) 0.1 CBC Comment DIFF FINAL Differential Comment Prothrombin Time 10.2 Prothromb Time International Ratio 1.0 Activated Partial Thromboplast Time 25.2 Fibrinogen 367 Blood Urea Nitrogen 12 Creatinine 0.81 Random Glucose 124 Calcium Level 8.2 Sodium Level 138 Potassium Level 3.6 Chloride Level 101 Carbon Dioxide Level 31.5 Anion Gap 6 Estimat Glomerular Filtration Rate 73 Hemoglobin A1c 5.5 Total Creatine Kinase 157 Troponin I LESS THAN 0.02 Human Chorionic Gonadotropin, Quant 2 Urine Collection Type CLEAN CATCH Urine Color STRAW Urine Turbidity CLEAR Urine pH 6.5 Urine Specific [place] LESS/EQUAL 1.005 Urine Protein NEG Urine Glucose (UA) NEG Urine Ketones NEG Urine Occult Blood NEG Urine Nitrite NEG Urine Bilirubin NEG Urine Urobilinogen 0.2 Urine Leukocyte Esterase NEG Urine WBC 0-2 Urine Mucus RARE Microscopic Urinalysis Comment Urine Opiates Screen NEG Urine Barbiturates Screen NEG Urine Amphetamines Screen NEG Urine Benzodiazepines Screen NEG Urine Cocaine Screen NEG Urine Cannabinoids Screen NEG Result Diagram: [id number]/14/[id number]/14/1755 Imaging Last Impressions Head Magnetic Resonance Angiography 09/14/17 0000 Signed Impressions: Service Date/Time: Thursday, September 14, 2017 10:37 - CONCLUSION: 1. Unremarkable MRA examination of the [place]. Specifically, no evidence for significant stenosis or large vessel occlusion. Zhang Horvath MD Head CT 09/14/17 0000 Signed Impressions: Service Date/Time: Thursday, September 14, 2017 07:03 - CONCLUSION: Unremarkable study. Gwyn Hernandez MD Carotid Artery Ultrasound 09/14/17 0000 Signed Impressions: Service Date/Time: Thursday, September 14, 2017 09:37 - CONCLUSION: 1. Minimal carotid plaque without significant flow-limiting stenosis. 2. Antegrade vertebral artery flow bilaterally. Zhang Horvath MD Brain MRI 09/14/17 0000 Signed Impressions: Service Date/Time: Thursday, September 14, 2017 10:37 - CONCLUSION: 1. There is increased T2 signal in the gael. The overall appearance is nonspecific. Differential considerations include microvascular ischemic demyelinative change , A demyelinating process such as MS or electrolyte abnormality. This is unchanged compared to the previous studies dated 09/25/14 and 09/27/16. Moose Spain MD Caprini VTE Risk Assessment Caprini VTE Risk Assessment: No/Low Risk (score <= 1) Caprini Risk Assessment Model Point Value = 1 Point Value = 2 Point Value = 3 Point Value = 5 Age 41-60 Minor surgery BMI > 25 kg/m2 Swollen legs Varicose veins or History of unexplained or recurrent spontaneous Oral contraceptives or hormone replacement Sepsis (< 1 month) Serious lung disease, including pneumonia (< 1 month) Abnormal pulmonary function Acute myocardial infarction Congestive heart failure (< 1 month) History of inflammatory bowel disease Medical patient at bed rest Age 61-74 Arthroscopic surgery Major open surgery (> 45 min) Laparoscopic surgery (> 45 min) Malignancy Confined to bed (> 72 hours) Immobilizing plaster cast Central venous access Age >= 75 History of VTE Family history of VTE Factor V Leiden Prothrombin [id number] Lupus anticoagulant Anticardiolipin antibodies Elevated serum homocysteine Heparin-induced thrombocytopenia Other congenital or acquired thrombophilia Stroke (< 1 month) Elective arthroplasty Hip, pelvis, or leg fracture Acute spinal cord injury (< 1 month) Prophylaxis Regimen Total Risk Factor Score Risk Level Prophylaxis Regimen 0-1 Low Early ambulation 2 Moderate Order ONE of the following: *Sequential Compression Device (SCD) *Heparin 5000 units SQ BID 3-4 Higher Order ONE of the following medications: *Heparin 5000 units SQ TID *Enoxaparin/Lovenox 40 mg SQ daily (WT < 150 kg, CrCl > 30 mL/min) *Enoxaparin/Lovenox 30 mg SQ daily (WT < 150 kg, CrCl > 10-29 mL/min) *Enoxaparin/Lovenox 30 mg SQ BID (WT < 150 kg, CrCl > 30 mL/min) AND/OR *Sequential Compression Device (SCD) 5 or more Highest Order ONE of the following medications: *Heparin 5000 units SQ TID (Preferred with Epidurals) *Enoxaparin/Lovenox 40 mg SQ daily (WT < 150 kg, CrCl > 30 mL/min) *Enoxaparin/Lovenox 30 mg SQ daily (WT < 150 kg, CrCl > 10-29 mL/min) *Enoxaparin/Lovenox 30 mg SQ BID (WT < 150 kg, CrCl > 30 mL/min) AND *Sequential Compression Device (SCD) Assessment and Plan Problem List: (1) Myasthenia exacerbation ICD Code: G70.01 - Myasthenia gravis with (acute) exacerbation Status: Acute Assessment and Plan 57-year-old female admitted secondary to myasthenia gravis exacerbation Myasthenia gravis exacerbation Patient may need IVIG Follow clinically for now Consult neurology Patient has passed swallow evaluation Regular diet Anemia Osteoarthritis History of depression Coronary artery disease Congestive heart failure History of CVA Fibromyalgia History of headaches Gastroesophageal reflux disease History of herniated disc Pulmonary hypertension Nephrolithiasis History of shingles Sleep apnea No change to baseline treatments for these conditions No exacerbations of these conditions Follow clinically DVT prophylaxis Lovenox Physician Certification 2 Midnight Certification Type: Admission for Inpatient Services Order for Inpatient Services The services are ordered in accordance with Medicare regulations or non- Medicare payer requirements, as applicable. In the case of services not specified as inpatient-only, they are appropriately provided as inpatient services in accordance with the 2-midnight benchmark. Estimated LOS (days): 3 days is the estimated time the patient will need to remain in the hospital, assuming treatment plan goals are met and no additional complications. Post-Hospital Plan: Home Moose Joyner MD Sep 14, 2017 17:36
[2017-09-14] MEDS ORDERED: ENOXAPARIN SODIUM 40 MG/0.4 ML SYRINGE SQ SCH (18:00)
--- NOTE | 2017-09-14 18:47 | MB ---
cc: Alexandre Moran MD DATE OF CONSULT: 09/14/2017 She is a 57-year-old woman. I spoke to the emergency room physician early this morning when she came in with slurred speech, tongue deviation initially reported to the right and some apparent right facial weakness. The patient has a history of myasthenia gravis and she takes IVIG monthly. She follows with Dr. Osman. 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 She says it is like a butterfly mass and she describes that she has been at the [facility]. This is probably why the MRI brain reported some ischemic demyelination at the gael level, which has been stable compared to previous MRIs in 2015 and also 2017. The patient describes stroke in the past that caused some left-sided symptoms. She had been on aspirin, but was told to discontinue it. She reported she follows with Dr. Zavala for cardiac concerns. She is now improved. No complaints at this point and she feels back to baseline. Exam shows patient to be alert, oriented. She has some probable exophthalmos, though mild. Ocular movements are full. Visual nava full. There is no double vision at this point and no ocular misalignment. Pupils equal and reactive. There is very slight right facial flattening when she is resting with her facial muscles. No overt hemiparesis. She reports being ambulatory to the bathroom at baseline, but I did not ambulate the patient. Reflexes diminished, but present. Plantar response is flaccid. She is moderately overweight. Speech seems normal at this point. Ancillary evaluation includes negative urine toxicology. Chemistry with glucose 124, otherwise normal chemistry. Calcium 8.2. CBC normal. The MRI brain as discussed above. Carotid ultrasound shows minimal carotid disease. Head MRA unremarkable. ASSESSMENT: This woman presented this morning to the emergency room with stroke-like symptoms. Her symptoms have subsided. It is not quite clear as to the cause of her symptomatology. She admits to a history of myasthenia gravis. She also had double vision and may have had some ptosis according to the ER evaluation. They saw a picture of her facial presentation that her friend had from this morning showing some right facial flattening and questionable slight tongue deviation to the left side. There is some apparent ischemic demyelination in the gael, which is an old finding that the patient has misinterpreted as a brain mass. It does not appear to be typical for multiple sclerosis per se. Her ancillary evaluation is essentially benign at this point. I will request a lipid profile. Start her back on aspirin. If she remains stable, she probably could be discharged tomorrow to follow with Dr. Osman as outpatient. She reports that she has had difficulty with the pills for myasthenia gravis and for that reason she uses IVIG monthly. Certainly not typical for a myasthenia exacerbation as well. Thank you for asking us to participate in her care. MD JAMES Knowles/KYA , 06:20 PM , 06:46 PM
[2017-09-14] MEDS ORDERED: ASPIRIN 325 MG TAB PO ONE (19:00)
--- NOTE | 2017-09-14 19:13 | EKG ---
Date Performed: 09/14/2017 Time Performed: 07:28:39 PTAGE: 57 years EKG: SINUS BRADYCARDIA NONSPECIFIC T-WAVE ABNORMALITY BORDERLINE ECG PREVIOUS TRACING : 04/28/2017 00.11 Since the previous tracing, no significant change noted DOCTOR: Sid Wallis Interpretating Date/Time 09/14/2017 19:13:24
[2017-09-14] MEDS ORDERED: PRAVASTATIN SOD 40 MG TAB PO SCH (21:00)
[2017-09-15 00:04] VITALS: BP 102/51; PULSE 47; RESP 16; TEMP 96.3; O2SAT 95
[2017-09-15 04:00] VITALS: BP 100/48; PULSE 52; RESP 16; TEMP 97.1; O2SAT 94
[2017-09-15] MEDS: SODIUM CHLOR 0.9% 1000 ML INJ 1,000 ML IV SCH (04:39)
[2017-09-15 06:45] LABS: AUTOMATED NEUTROPHIL # 2.4 TH/MM3 (1.8-7.7); BASOPHIL % 0.9 % (0.0-2.0); EOSINOPHIL # 0.1 TH/MM3 (0-0.4); EOSINOPHIL % 2.9 % (0.0-4.0); HEMATOCRIT 34.7 % (35.0-46.0); LYMPH % 42.4 % (9.0-44.0); LYMPHOCYTE # 2.2 TH/MM3 (1.0-4.8); MEAN CELL VOLUME 83.6 FL (80.0-100.0); MEAN CORPUSCULAR HEMOGLOBIN 26.6 PG (27.0-34.0); MEAN CORPUSCULAR HGB CONC 31.8 % (32.0-36.0); MEAN PLATELET VOLUME 8.6 FL (7.0-11.0); MONO % 7.3 % (0.0-8.0); MONOCYTE # 0.4 TH/MM3 (0-0.9); NEUT % 46.5 % (16.0-70.0); PLATELET COUNT 253 TH/MM3 (150-450); RED BLOOD COUNT 4.15 MIL/MM3 (4.00-5.30); WHITE BLOOD COUNT 5.1 TH/MM3 (4.0-11.0)
[2017-09-15 07:05] LABS: CHLORIDE 106 MEQ/L (98-107); SODIUM (NA) 142 MEQ/L (136-145)
[2017-09-15 07:14] LABS: ALBUMIN 2.9 GM/DL (3.4-5.0); BICARBONATE 28.7 MEQ/L (21.0-32.0); CALCIUM 7.9 MG/DL (8.5-10.1)
[2017-09-15 07:15] LABS: BLOOD UREA NITROGEN 14 MG/DL (7-18); GLUCOSE,RANDOM 91 MG/DL (74-106)
[2017-09-15 07:17] LABS: ALT (GPT) 22 U/L (10-53)
[2017-09-15 07:18] LABS: AST (GOT) 18 U/L (15-37); CREATININE 0.64 MG/DL (0.50-1.00); GLOMERULAR FILTRATION RATE 96 ML/MIN (>89)
[2017-09-15 07:19] LABS: TOTAL BILIRUBIN ADULT 0.3 MG/DL (0.2-1.0); TOTAL PROTEIN 6.2 GM/DL (6.4-8.2)
[2017-09-15 07:20] LABS: ALKALINE PHOSPHATASE 115 U/L (45-117)
[2017-09-15 07:50] VITALS: BP 118/60; PULSE 56; RESP 20; TEMP 96.7; O2SAT 96
[2017-09-15 07:51] VITALS: PULSE 57
[2017-09-15] MEDS: ASPIRIN 81 MG CHEW TAB PO SCH (08:44)
[2017-09-15] MEDS: SODIUM CHLORIDE 0.9% FLUSH 10 ML FLUSH IV FLUSH SCH (09:00)
[2017-09-15] MEDS ORDERED: ASPI81 PO (10:21)
--- NOTE | 2017-09-15 10:24 | HHI.DS ---
Discharge Summary Admission Date Sep 14, 2017 at 08:57 Discharge Date: Sep 15, 2017 Admitting Diagnosis CVA, MYASENIA GRAVIS EXACERBATION. (1) Myasthenia exacerbation ICD Code: G70.01 - Myasthenia gravis with (acute) exacerbation Status: Acute Procedures None Brief History - From Admission Mrs. Salcedo is a 57-year-old female. She came in secondary to weakness including slurred speech, ptosis, and double vision. She has a history of myasthenia gravis and has had similar symptoms before in the past. She reports that her symptoms today are worse than her baseline. She follows with neurology as an outpatient and has had IVIG in the past and for maintenance. No other complaints today. No difficulty swallowing. No difficulty breathing. No fevers. No other signs of infection. MRI of brain shows no evidence of acute CVA. CBC/BMP: 09/15/17 0600 09/15/17 0600 Significant Findings Laboratory Tests Test 09/14/17 06:55 09/14/17 09:00 09/15/17 06:00 Random Glucose 124 MG/DL (74-106) Calcium Level 8.2 MG/DL (8.5-10.1) 7.9 MG/DL (8.5-10.1) Estimat Glomerular Filtration Rate 73 ML/MIN (>89) Troponin I LESS THAN 0.02 NG/ML Hemoglobin 11.0 GM/DL (11.6-15.3) Hematocrit 34.7 % (35.0-46.0) Mean Corpuscular Hemoglobin 26.6 PG (27.0-34.0) Mean Corpuscular Hemoglobin Concent 31.8 % (32.0-36.0) Total Protein 6.2 GM/DL (6.4-8.2) Albumin 2.9 GM/DL (3.4-5.0) Hospital Course Mrs. Salcedo was admitted for CVA vs. Myasthenia Gravis exacerbation. Symptoms were ptosis, weakness, slurred speech and double vision for over 24 hours. Imaging showed no CVA. Overnight she has resolution of her symptoms and is back to baseline this morning. Cleared by neurology and medically cleared this morning for discharge back to home. Resume daily aspirin. Pt Condition on Discharge: Stable Discharge Disposition: Discharge Home Discharge Time: <= 30 minutes Discharge Instructions DIET: Follow Instructions for: As Tolerated, No Restrictions Speech Therapy-Diet Recommends: Regular Activities you can perform: Regular-No Restrictions Follow up Referrals: Neurology - As Per Protocol PCP Follow-up - 2 Weeks New Medications: Aspirin (Tgt Aspirin) 81 Mg Chw 162 MG PO DAILY for Blood Clot Prevention, #30 EA Continued Medications: B-Complex Vitamins Inj (Vitamin B-Complex 100 Inj) 1 Inj Inj 1000 MCG IM MONTHLY Duloxetine DR (Duloxetine DR) 60 Mg Capdr 60 MG PO DAILY, #30 CAP 0 Refills Furosemide (Lasix) 40 Mg Tab 40 MG PO BID, #60 TAB 0 Refills Irbesartan (Avapro) 150 Mg Tab 150 MG PO DAILY for Blood Pressure Management, #30 TAB 0 Refills Modafinil (Provigil) 200 Mg Tab 200 MG PO DAILY for Manage Daytime Sleepiness, TAB 0 Refills Pregabalin (Lyrica) 300 Mg Cap 300 MG PO BID, #60 CAP 0 Refills Spironolactone (Spironolactone) 25 Mg Tab 25 MG PO DAILY, #30 TAB 0 Refills Zolpidem (Ambien) 10 Mg Tab 10 MG PO HS PRN for INSOMNIA, TAB 0 Refills [Iv Ig] () Unknown Dose IV MONTHLY Moose Joyner MD Sep 15, 2017 10:24
[2017-09-15 11:01] LABS: CHOLESTEROL 119 MG/DL (120-200)
[2017-09-15 11:05] LABS: CHOLESTEROL/ HDL RATIO 2.27 RATIO; HDL CHOLESTEROL 52.3 MG/DL (40.0-60.0); LDL CHOLESTEROL 38 MG/DL (0-99); TRIGLYCERIDES 143 MG/DL (42-150)
== END 2017-09-15 11:16 | disposition home or self-care (01) | DRG 57 ==
LOC: PHED 06:50 → PHEDA 08:57 → PH3A 11:03
PROVIDERS: ADMIT Hospitalist; ATTEND Hospitalist
DX: G70.01 Myasthenia gravis with (acute) exacerbation (principal); I27.20 Pulmonary hypertension, unspecified; I50.9 Heart failure, unspecified; I11.0 Hypertensive heart disease with heart failure; I69.354 Hemiplegia and hemiparesis following cerebral infarction affecting left non-dominant side; G37.8 Other specified demyelinating diseases of central nervous system; M15.9 Polyosteoarthritis, unspecified; F32.9 Major depressive disorder, single episode, unspecified; M79.7 Fibromyalgia; K21.9 Gastro-esophageal reflux disease without esophagitis; G47.30 Sleep apnea, unspecified; I25.10 Atherosclerotic heart disease of native coronary artery without angina pectoris; D64.9 Anemia, unspecified; N20.0 Calculus of kidney; E66.3 Overweight; Z68.38 Body mass index [BMI] 38.0-38.9, adult; Z82.3 Family history of stroke; Z87.891 Personal history of nicotine dependence; Z88.5 Allergy status to narcotic agent; Z88.6 Allergy status to analgesic agent; Z98.84 Bariatric surgery status
CPT/HCPCS: 70450; 70544; 70551; 80048; 80053; 80061; 80307; 81001; 82550; 83036; 84484; 84702; 85025; 85384; 85610; 85730; 86850; 86900; 86901; 93005; 93880; 96374; J1650; J1885; J7030